=== PATIENT | female | born 1935 | race Caucasian/White ===

== ENCOUNTER 2017-01-14 16:12 | Inpatient (IN) | payer MEDICARE ==
[~2017-01-14] VITALS: Ht 170.2 cm; Wt 63.8 kg
[2017-01-14 16:12] VITALS: BP 181/78; PULSE 73; RESP 15; O2SAT 99
--- NOTE | 2017-01-14 16:15 | ED.REPORT ---
HPI-Hip/Pelvis Prob/Inj Date of Service Jan 14, 2017 ED Provider: Mason Mckeon MD The patient is a 81 year old female who presents to the ED via EMS due to sever right hip pain after a ground level fall [employer]PER[employer]. Her , who is with her in the room, was helping her out of the car in the [employer] parking lot, they both fell over on top of each other. She is not on blood thinners and denies heart and lung problems. Nursing Notes Stated Complaint: HIP PAIN Nursing Notes Reviewed: Yes Allergies: Coded Allergies: Green Thao (Verified Allergy, Unknown, 01/14/17) Penicillins (Verified Allergy, Unknown, 01/14/17) ampicillin (Verified Allergy, Unknown, 01/14/17) egg (Verified Allergy, Unknown, 01/14/17) meperidine (Verified Allergy, Unknown, 01/14/17) milk (Verified Allergy, Unknown, 01/14/17) General Time Seen by Provider: 16:23 Chief Complaint Hip injury right Hx Obtained From: Patient Arrived By: Ambulance Onset Occurred: Just prior to arrival Symptom Duration: Since onset Caused by: Fall on ground Severity: Current: Severe Recent Healthcare: No recent doctor visit, No recent hospitalization Similar Sx Previous: No Past Medical History Past Medical History breast cancer Past Surgical History lumpectomy Smoking History Unknown if Ever Smoker Social History Other Social History: Good social support, , Local resident Ambulatory Status Walker Review of Systems Musculoskeletal: Reports: Joint pain (right hip) Complete sys rev & neg: except as marked. Physical Exam Initial Vital Signs Vital Signs (First) Date Time Temp Pulse Resp B/P Pulse Ox O2 Delivery O2 Flow Rate FiO2 01/14/17 16:12 36.6 73 15 181/78 99 Room Air Initial VS: Reviewed General/Constitutional: Well-developed, Well-nourished Head / Eyes: Atraumatic, Normocephalic, PERRL ENT: Mucous membranes moist, Conjunctiva normal, No scleral icterus Respiratory: Breath sounds normal, Clear to auscultation, No respiratory distress Abdomen / GI: Soft, Non-tender, No guarding, No rebound, No distention Upper Extremities: Vascular intact, Neuro intact, No swelling, No tenderness Skin: Warm, Dry, No cyanosis Psychiatric: Mood/affect normal, Behavior normal, Normal thought content Right Hip: Positive: Open fracture present, Tenderness present... (Moderate), Unable to bear weight Heart Sounds / Murmur: Positive: Systolic murmur present.. (II/) Interpretation & Diagnostics Lab Results Interpretation Result Diagram: 01/14/17 1700 01/14/17 1700 Test 01/14/17 16:45 01/14/17 17:00 01/14/17 17:01 Urine Color Yellow (YELLOW) Urine Appearance Clear (CLEAR,HAZY) Urine pH 7.0 (5.0-8.0) Urine Specific [place] 1.015 (1.003-1.035) Urine Protein Negativemg/dL (NEG,TRACE) Urine Glucose (UA) Negativemg/dL (NEGATIVE) Urine Ketones Negativemg/dL (NEGATIVE) Urine Occult Blood Negative (NEGATIVE) Urine Nitrite Negative (NEGATIVE) Urine Bilirubin Negative (NEGATIVE) Urine Urobilinogen Normalmg/dL (NORMAL) Urine Leukocyte Esterase Negative (NEGATIVE) Urine RBC 0-2/hpf (0-2) Urine WBC 0-5/hpf (0-5) Urine Epithelial Cells Occasional/hpf (NONE-MOD) Urine Crystals None seen (NONE SEEN) Urine Bacteria None/hpf (NONE-FEW) Urine Hyaline Casts None/lpf (NONE) Urine Granular Casts None seen (NONE SEEN) Urine Waxy Casts None seen (NONE SEEN) Urine Red Blood Cell Casts None seen (NONE SEEN) Urine White Blood Cell Casts None seen (NONE SEEN) Urine Mucus None seen (None Seen) Urine Trichomonas None seen (NONE SEEN) Urine Yeast None (NONE SEEN) Urinalysis Comment None Urine Culture Reflexed Not indicated White Blood Count 6.1th/mm3 (3.8-10.1) Red Blood Count 4.10mil/mm3 (3.90-5.20) Hemoglobin 13.1g/dL (12.0-15.6) Hematocrit 38.1% (35.0-46.0) Mean Corpuscular Volume 92.9fL (81-100) Mean Corpuscular Hemoglobin 32.0pg (27.0-35.0) Mean Corpuscular Hemoglobin Concent 34.4% (32.0-37.0) Red Cell Distribution Width 14.0% (12.3-15.4) Platelet Count 232bil/L (150-400) Neutrophils (%) (Auto) 61.1% (40-74) Lymphocytes (%) (Auto) 24.3% (14-46) Monocytes (%) (Auto) 11.8% (4-12) Eosinophils (%) (Auto) 2.0% (0-5) Basophils (%) (Auto) 0.5% (0-3) Sodium Level 131mEq/L (134-144) Potassium Level 4.7mEq/L (3.5-5.2) Chloride Level 93mEq/L (97-108) Carbon Dioxide Level 22mmol/L (18-29) Blood Urea Nitrogen 24mg/dL (8-27) Creatinine 0.61mg/dL (0.57-1.00) Estimat Glomerular Filtration Rate 135mL/min (>59) Glucose Level 108mg/dL (60-99) Calcium Level 9.2mg/dL (8.5-10.1) Total Bilirubin 0.4mg/dL (0.0-1.2) Aspartate Amino Transf (AST/SGOT) 31U/L (0-50) Alanine Aminotransferase (ALT/SGPT) 22U/L (0-32) Alkaline Phosphatase 76U/L (25-165) Total Protein 6.7g/dL (6.4-8.4) Albumin 4.4g/dL (3.4-5.0) Hold Urine Received (Received) ECG Interpretation ECG Interpretation: ectopic atrial rhythm (rate 83) Time: 16:40 Interpreted by: ED physician X-Ray Chest Interpretation Chest Xray Interpretation: IMPRESSION: No acute cardiopulmonary disease process. Dictated by: Juliette Benton MD, PhD on 01/14/2017 at 18:12 Approved by: Juliette Benton MD, PhD on 01/14/2017 at 18:13 View: Portable Interpretation / Wet Read by: Interpret - Radiologist X-Ray Interpretation Xray Interpretation: IMPRESSION: Intertrochanteric right hip fracture. Dictated by: Juliette Benton MD, PhD on 01/14/2017 at 18:11 Approved by: Juliette Benton MD, PhD on 01/14/2017 at 18:12 X-Ray Ordered: Pelvis, Hip right Interpretation / Wet Read by: Interpret - Radiologist Re-Eval/Medical Decision Re-Evaluation/Progress #1: Time of Eval: 18:03 Re-Evaluation/Progress Note: Pt rechecked. Informed of imaging results of broken hip. Need for admission and potential surgery. Discussed plan of treatment with family. Pt understands and agrees with plan. All questions addressed. Re-Evaluation/Progress #2: Time of Eval: 19:00 Patient Status: Mild relief Re-Evaluation/Progress Note: Pt rechecked. Code status discussed with patient and family. Full code. Consultation #1: Referral / Consult Name: Ailyn Park MD Consulted With: Hospitalist Call Returned at: 18:35 Outreach Specialist: Agrees with eval, Agrees with plan, Accepts admit Note: Case discussed. Dr. Park will see patient Consultation #2: Referral / Consult Name: Irasema Wiseman DO Consulted With: Orthopedic Outreach Specialist: Will see patient Counseled Regarding: Diagnosis, Lab results Discharge & Departure Impression: Primary Impression: Hip fracture Encounter type: initial encounter Fracture type: open Open fracture type: open type I or II Laterality: right Qualified Code: S72.001B - Fracture of unspecified part of neck of right femur, initial encounter for open fracture type I or II Disposition: ADMITTED TO HOSPITAL Discharge Condition All VS Reviewed: Yes Condition: Stable Referrals: [facility] Scribe Attestation Portion of this note were transcribed by Gillian Galindo. I, Dr. Mckeon, personally performed the history, physical exam, and medical decision-making: I reviewed and confirmed the accuracy for the information in the transcribed note. Signed by: talib Rebolledo, 01/14/17 1800 copies to: [facility] Mason Mckeon MD Jan 14, 2017 16:15 Gillian Galindo Jan 14, 2017 16:28
[2017-01-14] MEDS ORDERED: Ondansetron 2 mg/mL 2 mL Inj IV PRN (16:25)
[2017-01-14] MEDS: HYDROmorphone 0.5 mg/0.5 mL iSecure Syringe IVPUSH PRN ×4 (16:39→23:07)
[2017-01-14 16:50] VITALS: BP 167/71; PULSE 75; RESP 20; O2SAT 100
[2017-01-14 17:08] LABS: BASOPHILS % (AUTO) 0.5 % (0-3); MONOCYTES % (AUTO) 11.8 % (4-12); Mean Corpuscular Volume 92.9 fL (81-100); NEUTROPHILS % (AUTO) 61.1 % (40-74); Platelet Count 232 bil/L (150-400)
--- NOTE | 2017-01-14 18:14 | DRSVH ---
PROCEDURE: X-RAY PELVIS W/LAT HIP (RT) ([id number]) INDICATIONS: fall R hip pain TECHNIQUE: AP pelvis with lateral view(s) of the right hip(s). COMPARISON: None. FINDINGS: Bones: Comminuted, intertrochanteric right hip fracture is noted. Right hip fracture is in varus an gulation. Soft tissues: The visualized bowel gas pattern is normal. Calcifications project over the midline of the pelvis likely related to uterine fibroids. IMPRESSION: Intertrochanteric right hip fracture. Dictated by: Juliette Benton MD, PhD on 01/14/2017 at 18:11 Approved by: Juliette Benton MD, PhD on 01/14/2017 at 18:12
--- NOTE | 2017-01-14 18:14 | DRSVH ---
PROCEDURE: X-RAY CHEST ONE VIEW, PORTABLE ([id number]) INDICATIONS: fall R hip pain TECHNIQUE: One view of the chest was acquired. COMPARISON: None. FINDINGS: Surgical changes and devices: Multiple surgical clips project over the breasts bilaterally. Cerclag e wires project over the mid thoracic spine. Lungs and pleura: No pleural effusions or pneumothorax. Lungs are clear. Mediastinum: Mediastinal contours appear normal. Heart size is normal. Bones and chest wall: No suspicious bony lesions. Overlying soft tissues appear unremarkable. Conve x right thoracic spine scoliosis. IMPRESSION: No acute cardiopulmonary disease process. Dictated by: Juliette Benton MD, PhD on 01/14/2017 at 18:12 Approved by: Juliette Benton MD, PhD on 01/14/2017 at 18:13
[2017-01-14 18:30] VITALS: BP 166/70; PULSE 78; RESP 15; O2SAT 98
[2017-01-14] MEDS ORDERED: Alum-Mag Hydrox-Simeth 30 mL Suspension PO PRN ×2 (18:55→21:55)
[2017-01-14] MEDS ORDERED: Ondansetron 2 mg/mL 2 mL Inj IVPUSH PRN ×2 (18:55→21:55)
[2017-01-14 19:41] LABS: APPEARANCE,URINE CLEAR (CLEAR,HAZY); COLOR,URINE YELLOW (YELLOW)
[2017-01-14 19:42] LABS: OCCULT BLOOD,URINE NEGATIVE (NEGATIVE); UROBILINOGEN,URINE NORMAL (NORMAL)
[2017-01-14 20:05] VITALS: BP 189/91; PULSE 65; RESP 18; O2SAT 98
--- NOTE | 2017-01-14 22:07 | PCM.HPMED ---
Subjective Date of Service Jan 14, 2017 Primary Provider: Admitting Physician: Ailyn Park MD Primary Care Physician: Christiano Briggs MD Attending Physician: Ailyn Park MD Admit Status: From the Emergency Department, Full Admit Chief Complaint: right hip pain following a fall History of Present Illness: She was helping her today who lost his balance and fell into her and while she was trying to prevent him from falling she fell and landed on the cement on her right side and noted right hip pain and was unable to get up. Denies LOC. No preceeding chest pain, SOB or palpitations. Review of Systems: Negative except as above. No recent acute illnesses. Allergies Coded Allergies: Green Thao (Verified Allergy, Unknown, 01/14/17) Penicillins (Verified Allergy, Unknown, 01/14/17) ampicillin (Verified Allergy, Unknown, 01/14/17) egg (Verified Allergy, Unknown, 01/14/17) meperidine (Verified Allergy, Unknown, 01/14/17) milk (Verified Allergy, Unknown, 01/14/17) Home Medications She takes two meds but doesn't know doses, daughter will bring them in tomorrow: anti-estrogen for history of breast cancer thyroid med PMH hard of hearing hypothyroidism hx bilat breast cancer, no XRT or chemo chronic droop of right side of mouth due to a past dental procedure Denies heart or lung disease although says occl has an irreg heart beat that hasn't been diagnosed, no HTN or DM Surgical History "Pectus surgery" at age 26 bilat cataract surgery bilat breast lumpectomies for breast cancer Family History parents both of old age, not aware of any heart disease in the family Social History Hx Alcohol Use: Yes (a few per year) Hx Substance Use: No Hx Tobacco Use: No Smoking Status: Unknown if Ever Smoker Living Arrangement: with Family (but with progessive dementia, can't live alone without patient so family wonders if they can both be at same NH while she rehabs) Additional Information No written HC POA but would designate giovanni [place] Exam Vital Signs Vital Sign - Last Date Time Temp Pulse Resp B/P Pulse Ox O2 Delivery O2 Flow Rate FiO2 01/14/17 20:05 36.6 65 18 189/91 98 Room Air Exam General: Alert and oriented, no acute distress HEENT: unremarkable except the chronic droop of right side of mouth Neck: no JVD, carotids 2+ Heart: Regular Lungs: Clear Abdomen: Soft, non-tender, normal BT Extremities: No pedal edema Neuro: no apparent deficit Lab and Diagnostics Result Diagram: 01/14/17169901/14/171699 Assessment & Plan # Right hip fracture - by report she's scheduled for surgery at 9 am tomorrow morning - no apparent contraindications to surgery # hx breast cancer and hypothyroidism - still needs home meds ordered, giovanni will bring list tomorrow # BP elevated which may be due to pain and anxiety, observe Ailyn Park MD Jan 14, 2017 22:07
--- NOTE | 2017-01-14 23:46 | NUR ---
ADMIT; 81 yr old female from [facility] at approx. 1944 to room 1022 via [email or web address] whose apparently fell on her in a store parking lot and fx her right hip. See admit screen.
--- NOTE | 2017-01-14 23:50 | NUR ---
MED REC NOT COMPLETED. Pt's daughter will bring in names and doses of 2 meds pt takes at home in the a.m. - Dr. Vivian lozada.
[2017-01-15] VITALS (14 sets, daily range): BP systolic 131–177; BP diastolic 60–85; PULSE 64–76; RESP 10–18; O2SAT 96–100
[2017-01-15] MEDS: 0.9% Sodium Chloride 1,000 ML IV SCH ×2 (00:27→07:51)
[2017-01-15] MEDS: HYDROmorphone 0.5 mg/0.5 mL iSecure Syringe IVPUSH PRN ×4 (02:57→18:31)
--- NOTE | 2017-01-15 03:25 | NUR ---
PAIN; ortho checks wnl. Right leg shorter than left. Dilaudid 0.5mg iv for pain with moderate relief. Alert and oriented. NPO after midnight for surgery in a.m.- family aware and talked with hospitalist.
[2017-01-15] MEDS ORDERED: Dexamethasone 4 mg/mL Inj ONE (08:10)
[2017-01-15] MEDS ORDERED: Ondansetron 2 mg/mL 2 mL Inj ONE (08:10)
[2017-01-15] MEDS ORDERED: EPHEDrine/NS 5 mg/mL 5 mL Syringe ONE (08:10)
[2017-01-15] MEDS ORDERED: Propofol 10,000 mCg/mL 20 mL Inj ONE (08:10)
[2017-01-15] MEDS ORDERED: Ketamine 10 mg/mL 20 mL Inj ONE (08:10)
[2017-01-15] MEDS ORDERED: Lactated Ringer's 1,000 ML IV ONE ×2 (08:55→09:22)
[2017-01-15] MEDS ORDERED: Dexamethasone 4 mg/mL Inj IVPUSH PRN (08:55)
[2017-01-15] MEDS ORDERED: Lactated Ringer's 1,000 ML IV SCH (08:55)
[2017-01-15] MEDS ORDERED: Phenylephrine 10,000 mCg/mL Inj IVPUSH PRN (08:55)
[2017-01-15] MEDS ORDERED: Lactated Ringer's 500 ML IV PRN (08:55)
[2017-01-15] MEDS ORDERED: EPHEDrine Sulfate 50 mg/mL Inj IVPUSH PRN (08:55)
[2017-01-15] MEDS ORDERED: MetoCLOpramide 5 mg/mL 2 mL Inj IVPUSH PRN (08:55)
[2017-01-15] MEDS ORDERED: Ondansetron 2 mg/mL 2 mL Inj IVPUSH PRN ×2 (08:55→10:55)
--- NOTE | 2017-01-15 08:55 | PCM.HPANE ---
Patient Data Surgeon Admitting Provider:Ailyn Park MD Attending Provider:Ailyn Park MD Primary Care Physician:Christiano Briggs MD Other Provider: Reason for Visit Right Hip Fracture Ht/WT & BMI Height (Feet): 5 Height (Inches): 7.00 Weight (Kilograms): 63.800 Body Mass Index 22.08 Allergies Coded Allergies: Green Thao (Verified Allergy, Intermediate, Rash, 01/14/17) Penicillins (Verified Allergy, Intermediate, Rash, 01/14/17) ampicillin (Verified Allergy, Intermediate, Rash, 01/14/17) codeine (Verified Allergy, Intermediate, 01/15/17) egg (Verified Allergy, Intermediate, Rash, 01/14/17) meperidine (Verified Allergy, Intermediate, Rash, 01/15/17) milk (Verified Allergy, Intermediate, Rash, 01/14/17) Past Anesthesia History Anesthesia History: Denies:: Abnormal Airway, Anesthesia Reactions, Difficult Intubation Diabetes History Hx Diabetes?: No MRSA MRSA: No Medications Hypertension Medication: No Home Meds Incl Beta Ebonie: No History History of ENT Problems?: No HEENT History: Denies:: Abnormal Airway Difficult Intubation Hx of Heart Problems?: No Hx of Respiratory Problem?: No Hx Neurologic Problems?: No Hx of GI Problems?: No Hx of Problems?: No Female Hx: Positive for:: Problems with Breasts? (HX OF DOUBLE LUMPECTOMY) Hx Musculoskeletal Problems?: No Hx of Psycho/Social Problems?: No Hx Surgeries?: Yes (APPY A CHILD) Hx Any Other Health Problems?: Yes Other History: Positive for:: Cancer (BREAST CANCER) Hospitalization Thyroid Disease History Blood Transfusions: Positive for:: Accept Blood Products? Denies:: Blood Transfuse Reaction Blood Transfusions Hx Diabetes: No Hx Alcohol Use: Yes (a few per year)Hx Substance Use: No Smoking Status: Unknown if Ever Smoker Have You Smoked inLast 12 mo: No Stop/Bang Treated for Sleep Apnea?: No Do You Have a CPAP Machine?: No S-Snoring: Do You Snore Loudly: No T-Tired: feel tired, fatigued: No O-Obsered: Observed not breath: No P-Blood Pressure: treated: No B- Body Mass Index > 35 kg/m2: No A- Age over 50: Yes N- Neck Large Circumference: No G- Gender Male: No DUANE Total Score: 0 DUANE Risk Assessment: Low Risk, <3 Yes Risk Assessment Category Category 1A: Patient has history of documented sleep apnea, and HAS NOT received any narcotic, sedative or anesthesia administration during this stay. Category 1B: Patient has history of documented sleep apnea, and HAS received any narcotic , sedative or anesthesia administration during this stay Category 2: Patient has SUSPECTED Obstructive Sleep Apnea, and HAS received any narcotic , sedative or anesthesia administration during this stay. Category 3: Patient has SUSPECTED Obstructive Sleep Apnea and HAS NOT received narcotic, sedative or anesthesia administration during this stay. Category 4: Outpatient in Procedural Areas with known sleep apnea or who screen positive for High Risk via the STOP/BANG questionnaire. Exam Exam Vital Signs Vital Signs Date Time Temp Pulse Resp B/P Pulse Ox O2 Delivery O2 Flow Rate FiO2 01/15/17 05:30 36.5 64 18 177/85 97 Room Air General Appearance: Alert, Oriented X3, Cooperative, No Acute Distress HEENT/AIRWAY: MP 2 Lungs: Clear to Auscultation, Normal Air Movement Heart: Exam Unremarkable, Regular Rate/Rhythm, No Murmurs/Rubs/Gallops Meds/Labs/Diagnostics Admission Meds Current Medications Sodium Chloride (Normal Saline) 1,000 ml @ 100 mls/hr Q10H IV Last administered on 01/15/17 00:27; Start 01/14/17 at 21:51 Amlodipine Besylate (Norvasc) 5 mg DAILY PO Last administered on 01/15/17 08: 47; Start 01/15/17 at 08:30 Labs Test 01/14/17 16:45 01/14/17 17:00 01/14/17 17:01 Urine Color Yellow (YELLOW) Urine Appearance Clear (CLEAR,HAZY) Urine pH 7.0 (5.0-8.0) Urine Specific [place] 1.015 (1.003-1.035) Urine Protein Negativemg/dL (NEG,TRACE) Urine Glucose (UA) Negativemg/dL (NEGATIVE) Urine Ketones Negativemg/dL (NEGATIVE) Urine Occult Blood Negative (NEGATIVE) Urine Nitrite Negative (NEGATIVE) Urine Bilirubin Negative (NEGATIVE) Urine Urobilinogen Normalmg/dL (NORMAL) Urine Leukocyte Esterase Negative (NEGATIVE) Urine RBC 0-2/hpf (0-2) Urine WBC 0-5/hpf (0-5) Urine Epithelial Cells Occasional/hpf (NONE-MOD) Urine Crystals None seen (NONE SEEN) Urine Bacteria None/hpf (NONE-FEW) Urine Hyaline Casts None/lpf (NONE) Urine Granular Casts None seen (NONE SEEN) Urine Waxy Casts None seen (NONE SEEN) Urine Red Blood Cell Casts None seen (NONE SEEN) Urine White Blood Cell Casts None seen (NONE SEEN) Urine Mucus None seen (None Seen) Urine Trichomonas None seen (NONE SEEN) Urine Yeast None (NONE SEEN) Urinalysis Comment None Urine Culture Reflexed Not indicated White Blood Count 6.1th/mm3 (3.8-10.1) Red Blood Count 4.10mil/mm3 (3.90-5.20) Hemoglobin 13.1g/dL (12.0-15.6) Hematocrit 38.1% (35.0-46.0) Mean Corpuscular Volume 92.9fL (81-100) Mean Corpuscular Hemoglobin 32.0pg (27.0-35.0) Mean Corpuscular Hemoglobin Concent 34.4% (32.0-37.0) Red Cell Distribution Width 14.0% (12.3-15.4) Platelet Count 232bil/L (150-400) Neutrophils (%) (Auto) 61.1% (40-74) Lymphocytes (%) (Auto) 24.3% (14-46) Monocytes (%) (Auto) 11.8% (4-12) Eosinophils (%) (Auto) 2.0% (0-5) Basophils (%) (Auto) 0.5% (0-3) Sodium Level 131mEq/L (134-144) Potassium Level 4.7mEq/L (3.5-5.2) Chloride Level 93mEq/L (97-108) Carbon Dioxide Level 22mmol/L (18-29) Blood Urea Nitrogen 24mg/dL (8-27) Creatinine 0.61mg/dL (0.57-1.00) Estimat Glomerular Filtration Rate 135mL/min (>59) Glucose Level 108mg/dL (60-99) Calcium Level 9.2mg/dL (8.5-10.1) Total Bilirubin 0.4mg/dL (0.0-1.2) Aspartate Amino Transf (AST/SGOT) 31U/L (0-50) Alanine Aminotransferase (ALT/SGPT) 22U/L (0-32) Alkaline Phosphatase 76U/L (25-165) Total Protein 6.7g/dL (6.4-8.4) Albumin 4.4g/dL (3.4-5.0) Hold Urine Received (Received) Plan Impression Patient chart reviewed, patient interviewed and anesthestic plan with risks, benefits, and alternatives discussed, and informed consent obtained. ASA Physical Status: ASA2 Mod Systemic Disease Anesthetic Plan: SAB Bene/Risks/Altern/Consents: Yes HP Complete Prior to Induction: Yes Abelardo Simms MD Jan 15, 2017 08:55
[2017-01-15] MEDS ORDERED: Ropivacaine-PF 0.5% 30 mL Inj INFILTRATE ONE (10:15)
--- NOTE | 2017-01-15 10:21 | NUR ---
SNF Choice List Given. Lenora Moses MSW
[2017-01-15] MEDS ORDERED: THYR15TA PO (10:45)
[2017-01-15] MEDS ORDERED: 0.9% Sodium Chloride 1,000 ML IV SCH (10:55)
[2017-01-15] MEDS ORDERED: diphenhydrAMINE 25 mg Capsule PO PRN (10:55)
--- NOTE | 2017-01-15 12:00 | NUR ---
returned to room 1022 from PACU alert, oriented, but forgetful, both legs still very numb, VSS, dressing C/D/I, appears comfortable, no distress, ortho sign OK
[2017-01-15] MEDS: THYROID PORK 15 MG PO SCH (12:20)
--- NOTE | 2017-01-15 12:27 | PCM.PNMED ---
Subjective Date of Service Jan 15, 2017 Subjective BP elevated. Started amlodipine. Pain controlled. Awaiting surgery. Exam Vital Signs Vital Sign - Last Date Time Temp Pulse Resp B/P Pulse Ox O2 Delivery O2 Flow Rate FiO2 01/15/17 11:40 72 16 165/67 97 Room Air 01/15/17 11:30 36.2 01/15/17 11:05 4 Intake and Output 01/14/17 01/14/17 01/15/17 Cumulative From/Thru 15:00 23:00 07:00 01/14/17 16:12 - 01/15/17 06:23 Intake Total 719 ml 719 ml Balance 719 ml 719 ml Intake Oral 300 ml 300 ml IV Total 419 ml 419 ml Exam General: Alert and oriented, no acute distress HEENT: unremarkable except the chronic droop of right side of mouth Neck: no JVD, carotids 2+ Heart: Regular Lungs: Clear Abdomen: Soft, non-tender, normal BT Extremities: No pedal edema. Right hip tenderness on passive movement. Neuro: no apparent deficit IVs and Medications Medications Reviewed: Medications were reviewed in detail Lab and Diagnostics Result Diagram: 01/14/17 1700 01/14/17 1700 X-Rays, CTs and MRIs PROCEDURE: X-RAY PELVIS W/LAT HIP (RT) ([id number]) INDICATIONS: fall R hip pain TECHNIQUE: AP pelvis with lateral view(s) of the right hip(s). COMPARISON: None. FINDINGS: Bones: Comminuted, intertrochanteric right hip fracture is noted. Right hip fracture is in varus angulation. Soft tissues: The visualized bowel gas pattern is normal. Calcifications project over the midline of the pelvis likely related to uterine fibroids. IMPRESSION: Intertrochanteric right hip fracture. Dictated by: Juliette Benton MD, PhD on 01/14/2017 at 18:11 Assessment & Plan # Right hip fracture - she is scheduled for surgery this morning - no apparent contraindications to surgery # Hypertension, probably chronic -Started amlodipine -BP continues to be high despite pain control #Hypothyroidism, chronic -Continue home thyroid armor # hx breast cancer and hypothyroidism - still needs home meds ordered, giovanni will bring list tomorrow [employer]: Intermittant Pneumatic CD Kameron Cullen MD Jan 15, 2017 12:27
[2017-01-15] MEDS: Acetaminophen IV 1,000 MG in IV Premix 1 EACH IV PRN ×2 (13:07→23:18)
--- NOTE | 2017-01-15 13:51 | NUR ---
PT eval order received to begin PT MARKUS; however, nsg reports pt does not have any sensation in LEs yet; not safe to attempt standing; unable to return sec to LC; f/u in a.m. 01/16
[2017-01-15] MEDS ORDERED: ANAS1TAB7 PO (14:04)
--- NOTE | 2017-01-15 15:17 | NUR ---
Social Work- Initial Assessment Data: See Initial Assessment. Pt is a 81 year old female admitted 01/14/17 for right hip fracture per H&P. Pt's insurance is [facility] and [employer]. Pt's PCP is Christiano Briggs MD. EMR reviewed. DEDE met with pt and daughter Kathy Gordon [phone] at bedside regarding discharge plan, SW role explained. Pt resides in [place] with her where she remains independent with her ADLs and cares for her , who has dementia. Pt uses no DME and drives. Pt has no HH or SNF history prior to admission. Pt has LTC benefits but no VA benefits. SW spoke with pt and daughter regarding DPOA, provided paperwork. Per Surgery, pt's anticipated to need SNF at discharge. PT evaluation pending. Pt's daughter informed SW that pt's cannot be at home while pt is at SNF receiving rehab. Daughter requests that pt be admitted to SNF as well while pt is there. SW offered private pay caregivers to family during pt's SNF admission, family declined. SW explained private pay admission for pt's , private pay caregivers, and the process of SNF placement from home. SW explained that SW cannot facilitate 's acceptance or placement to SNF beyond general guidance, but SW will facilitate pt's placement to SNF pending clinical course. SNF choice list provided. Family requests referrals be made to [facility] in [place] [phone], [facility] in [place] [phone], and [facility] in [place] [phone]. SW encouraged daughter to tour and speak with facilities directly regarding husbands admission. SW faxed pt's H&P and facesheet to each facility. SW provided phone number on whiteboard. Pt anticipated to discharge to SNF pending clinical course and PT recommendations. Paperwork in chart. PASRR in folder. SW will continue to follow. Contact information included below: [place], [place]-- admissions Nikki. Ph is [phone], fax is [phone]. [place], [place]-- admissions Chiara. Ph is [phone], fax is [phone] [facility]-- admissions Miky. [phone], fax is [phone] Assessment: Pt who may benefit from SNF. Plan: PT evaluation pending. Pt anticipated to discharge to SNF. Referrals made to [facility], [facility], and [facility]. SW will continue to follow. ZIYAD Sheppard Addendum: 01/15/17 at 1543 by ANITA BATRES SS Amended: Links added.
--- NOTE | 2017-01-15 15:25 | NUR ---
Evaluation completed. Please go to "Notes" then click on "Assessments and Notes" (bottom left corner of screen). Then select appropriate discipline tab on top of screen.
--- NOTE | 2017-01-15 16:11 | CONS ---
[address] [address] CONSULTATION REPORT PATIENT: SUSHMA BRYAN : 1935 MR#: [id number] ADMIT: 01/14/2017 JOB ID: [id number] DATE OF SERVICE: 01/15/2017 CHIEF COMPLAINT: Right hip pain. HISTORY OF PRESENT ILLNESS: The patient is an 81-year-old female, who was walking with her , assisting him across the street at [facility], when he started to fall, and she subsequently fell onto her right hip, sustaining a right intertrochanteric hip fracture. She was unable to ambulate after the fall and had onset of severe acute pain in the right upper thigh. She normally walks without aids and cares for her , who is quite unsteady on his feet. PAST MEDICAL HISTORY: Significant for hypothyroid and history of breast cancer, which was surgically resected many years ago. PAST SURGICAL HISTORY: Includes the breast cancer resection. SOCIAL HISTORY: Patient lives at home with her . Does not smoke. 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 ALLERGIES: Include: 1. PENICILLIN, causing a rash. 2. AMPICILLIN. 3. DEMEROL. 4. CODEINE, causing nausea. PHYSICAL EXAMINATION: Blood pressure 131/65, pulse rate 67, respirations 15, temperature 36.4. She is alert and cooperative, in no acute distress. Right hip has pain with range of motion in the groin. She is able to move her toes. Her sensation to foot is intact. Her foot is shortened and externally rotated. The skin overlying the hip is intact. She has some palpable osteophytes and obvious degenerative arthritis in her knees. X-rays demonstrate a right intertrochanteric fracture with reverse obliquity and comminution. ASSESSMENT: Right unstable intertrochanteric fracture with reverse obliquity. PLAN: We discussed treatment options for her and this fracture, and I recommended a right hip cephalomedullary nail with spinal anesthesia. We discussed the risks, benefits, and possible complications of this. All questions were answered and she and her daughter wished to proceed. Will plan for Lovenox for DVT prophylaxis postoperatively as she has a daughter who has had DVTs and is anticoagulated. I spent 25 minutes of [id number] time with the patient, greater than 50% of which was in counseling and coordination of care regarding her disease management, fracture management.
[2017-01-15] MEDS: Sodium Chloride LOK Flush 10 mL Syringe IV SCH (18:31)
--- NOTE | 2017-01-15 18:39 | OP ---
[address] [address] OPERATIVE REPORT PATIENT: SUSHMA BRYAN : 1935 MR#: [id number] ADMIT: 01/14/2017 JOB ID: [id number] DATE OF SURGERY: 01/15/2017 PREOPERATIVE DIAGNOSIS(ES): Right reverse obliquity intertrochanteric fracture. POSTOPERATIVE DIAGNOSIS(ES): Right reverse obliquity intertrochanteric fracture. PROCEDURE: Right hip short Affixus nail. SURGEON: Ochoa Wiseman DO. ANESTHESIA: Spinal. INDICATIONS: The patient is an 81-year-old female, who fell in the parking lot of [employer] sustaining a right intertrochanteric hip fracture. We discussed treatment options and she wished to proceed with a right hip cephalomedullary nailing. We discussed the risks, benefits, and possible complications of surgery. All questions were answered and she wished to proceed. PROCEDURE IN DETAIL: The patient was brought to the operating room. She was given a spinal anesthetic and preoperative antibiotic. A surgical time-out was performed. She was placed onto the fracture table and the right hip was reduced with a combination of traction, abduction, internal rotation. The right hip was then sterilely prepped and draped,and an incision was made centered about three fingerbreadths above the level of the trochanter. Dissection was carefully carried through the subcutaneous tissue and down onto the iliotibial band, which was incised in line with the skin incision. The guidewire was placed into the tip of the trochanter and advanced into the center of the femoral canal. This was confirmed with biplane fluoroscopy and this was over-reamed with the one-step reamer. Next, I placed an 11 mm, 125-degree, short Affixus nail. This was inserted without difficulty and then we placed the lag screw, making incision over the lateral thigh. The lag screw sleeve was advanced onto the lateral cortex of the femur and a guidepin was advanced into the center-center position in the femoral head. This was measured, over-reamed, and then a 100 mm lag screw was inserted. Had excellent fixation. A set screw was placed and backed off a quarter turn. A distal locking screw was placed and the wounds were then irrigated and closed with 0 Vicryl to close the deep fascia, 2-0 to close the subcu. The skin was closed with satnam. Naropin was added as an adjunct to local anesthetic. Fluoroscopy confirmed appropriate position of the implants and sterile dressings were applied. Patient tolerated the procedure well. BLOOD LOSS: 50 cc. POSTOPERATIVE PROTOCOL: Have the patient weightbear to tolerance with a walker. We used Lovenox for DVT prophylaxis for 21 days postoperatively and planned for Anchor 5/325 for pain.
[2017-01-15] MEDS: CeFAZolin Inj 2 GM in IV Premix 1 EACH IV SCH (19:30)
[2017-01-16 00:16] VITALS: BP 138/64; PULSE 71; RESP 18; O2SAT 96
[2017-01-16] MEDS: Sodium Chloride LOK Flush 10 mL Syringe IV SCH ×3 (00:30→13:27)
--- NOTE | 2017-01-16 01:55 | NUR ---
PAIN: During initial assessment pt. c/o post op hip pain. Given IV Tylenol, helpful. Offered PO Cast[place] but pt. declined wants to wait until later. Repositioned in bed. Very BARROW, A & O, vss. On going care.
[2017-01-16] MEDS: CeFAZolin Inj 2 GM in IV Premix 1 EACH IV SCH (03:21)
[2017-01-16] MEDS: HYDROcodone-APAP 5-325 mg Tablet PO PRN ×4 (03:55→21:11)
[2017-01-16 04:14] VITALS: BP 155/76; PULSE 67; RESP 16; O2SAT 96
[2017-01-16 06:16] LABS: BASOPHILS % (AUTO) 0.1 % (0-3); EOSINOPHILS % (AUTO) 0.7 % (0-5); MONOCYTES % (AUTO) 14.5 % (4-12); Mean Corpuscular Hemoglobin 31.3 pg (27.0-35.0); Mean Corpuscular Volume 91.5 fL (81-100); NEUTROPHILS % (AUTO) 72.7 % (40-74); Platelet Count 176 bil/L (150-400)
[2017-01-16] MEDS: 0.9% Sodium Chloride 1,000 ML IV SCH ×2 (08:15→21:12)
[2017-01-16] MEDS: THYROID PORK 15 MG PO SCH (08:30)
--- NOTE | 2017-01-16 10:09 | PCM.ANEP1 ---
Post Anesthesia Phase 1 PACU Phase 1 Assessment Vital Signs Vital Signs Date Time Temp Pulse Resp B/P Pulse Ox O2 Delivery O2 Flow Rate FiO2 01/16/17 04:14 36.7 67 16 155/76 96 Room Air Anesthetic Administered: SAB Level of Alertness: Awake, talking CINTRON's with Equal Strength: Yes Pain: Yes Pain Scale Score: 6 Nausea or Vomiting: No Lungs: Clear to Auscultation, Normal Air Movement Dermatome Level: L3,4 (Patella) Abelardo Simms MD Jan 16, 2017 10:09
--- NOTE | 2017-01-16 10:10 | PCM.ANEP2 ---
Post Anesthesia Evaluation ASA/CMS Post Anesthesia VS in Patient's Normal Range?: Yes Resp Stable; Airway Patent?: Yes CV Function & Hydration Stable: Yes Mental Status Recovered?: Yes Pain control Satisfactory?: Yes N/V Control Satisfactory?: Yes Abelardo Simms MD Jan 16, 2017 10:10
--- NOTE | 2017-01-16 10:31 | PCM.PNORTH ---
Subjective Date of Service: Jan 16, 2017 Visit Information: Reason for Visit Right Hip Fracture Surgery/Surgery Date R HIP NAIL 01/15/17 Post-Op Day # 1 Date of Admission: Jan 14, 2017 at 18:43 Hospital Day # Subjective Patient complained of incisional pain. She is currently working with physical therapy. Postop General: No Shortness of Breath, No Chest Pain, Good Appetite Pain Management: PO, IV Push Objective Exam Objective Patient is seen sitting up in bed Vital Signs and I/O Vital Sign - Last Date Time Temp Pulse Resp B/P Pulse Ox O2 Delivery O2 Flow Rate FiO2 01/16/17 04:14 36.7 67 16 155/76 96 Room Air 01/15/17 11:05 4 Intake and Output 01/15/17 01/15/17 01/16/17 Cumulative From/Thru 15:00 23:00 07:00 01/14/17 16:12 - 01/16/17 06:39 Intake Total 900 ml 600 ml 707 ml 2926 ml Output Total 550 ml 1150 ml 725 ml 2425 ml Balance 350 ml -550 ml -18 ml 501 ml Intake Oral 600 ml 400 ml 1300 ml IV Total 900 ml 307 ml 1626 ml Output Urine Total 500 ml 1150 ml 725 ml 2375 ml Estimated Blood Loss 50 ml 50 ml # Bowel Movements 0 0 Lab & Micro Results Laboratory Tests Test 01/16/17 05:50 White Blood Count 7.1th/mm3 (3.8-10.1) Red Blood Count 3.64mil/mm3 (3.90-5.20) Hemoglobin 11.4g/dL (12.0-15.6) Hematocrit 33.3% (35.0-46.0) Mean Corpuscular Volume 91.5fL (81-100) Mean Corpuscular Hemoglobin 31.3pg (27.0-35.0) Mean Corpuscular Hemoglobin Concent 34.2% (32.0-37.0) Red Cell Distribution Width 13.2% (12.3-15.4) Platelet Count 176bil/L (150-400) Neutrophils (%) (Auto) 72.7% (40-74) Lymphocytes (%) (Auto) 11.7% (14-46) Monocytes (%) (Auto) 14.5% (4-12) Eosinophils (%) (Auto) 0.7% (0-5) Basophils (%) (Auto) 0.1% (0-3) Sodium Level 125mEq/L (134-144) Potassium Level 4.3mEq/L (3.5-5.2) Chloride Level 90mEq/L (97-108) Carbon Dioxide Level 23mmol/L (18-29) Blood Urea Nitrogen 16mg/dL (8-27) Creatinine 0.50mg/dL (0.57-1.00) Estimat Glomerular Filtration Rate 170mL/min (>59) Glucose Level 114mg/dL (60-99) Calcium Level 8.8mg/dL (8.5-10.1) Result Diagram: 01/16/17 0550 01/16/1750 General Appearance: Alert, Oriented X3, Cooperative, No Acute Distress Extremities: Distal Pulses Palpable, No Compartment Syndrom Noted, Thigh & Calf Soft/Nontender Postop Sensory Motor: Distal Motor Intact, NVI Distally SURGICAL WOUND : Wound Location/Description Lateral right hip: Dressing is clean, dry and intact. No erythema or drainage seen. Activity: Activity per PT, Ambulate with PT Catheters: None Assessment & Plan Impression Status post right hip IM nail Problems: Plan Weightbearing: Weightbearing as tolerated with walker DVT prophylaxis: Lovenox 40 mg subcutaneous 3 weeks followed by aspirin 325 mg twice a day 3 weeks Physical therapy for transfers, progressive ambulation, therapeutic exercise Wound care: Reinforce dressing if needed. PA will change dressing tomorrow. Discharge plan: Discharge to snf facility 1-2 days. Follow-up plan: In 2 weeks at [facility] with SARIKA for wound check and at [address] Wiseman with x-rays Pain Management: Dilaudid IV, Tylenol IV, [place] VTE Prophylaxis: Sub-Q Enoxaparin, SCDs Resuscitation Status: CPR: Attempt Resuscitation [place]abel Carrillo PA-C Jan 16, 2017 10:31
--- NOTE | 2017-01-16 12:07 | NUR ---
Evaluation completed. Please go to "Notes" then click on "Assessments and Notes" (bottom left corner of screen). Then select appropriate discipline tab on top of screen.
[2017-01-16 12:14] VITALS: BP 116/71; PULSE 71; RESP 16; O2SAT 95
--- NOTE | 2017-01-16 14:17 | PCM.PNMED ---
Subjective Date of Service Jan 16, 2017 Subjective s/p Right hip nail.Pain controlled. Blood pressure controlled. Hemoglobin 11.4 , preop hemoglobin 13.1, Exam Vital Signs Vital Sign - Last Date Time Temp Pulse Resp B/P Pulse Ox O2 Delivery O2 Flow Rate FiO2 01/16/17 13:52 Room Air 01/16/17 12:14 36.7 71 16 116/71 95 01/15/17 11:05 4 Intake and Output 01/15/17 01/15/17 01/16/17 Cumulative From/Thru 15:00 23:00 07:00 01/14/17 16:12 - 01/16/17 06:39 Intake Total 900 ml 600 ml 707 ml 2926 ml Output Total 550 ml 1150 ml 725 ml 2425 ml Balance 350 ml -550 ml -18 ml 501 ml Intake Oral 600 ml 400 ml 1300 ml IV Total 900 ml 307 ml 1626 ml Output Urine Total 500 ml 1150 ml 725 ml 2375 ml Estimated Blood Loss 50 ml 50 ml # Bowel Movements 0 0 Exam General: Alert and oriented, no acute distress HEENT: unremarkable except the chronic droop of right side of mouth Neck: no JVD, carotids 2+ Heart: Regular Lungs: Clear Abdomen: Soft, non-tender, normal BT Extremities: No pedal edema. Right hip swelling and tenderness. Cleanly dressed surgical site on right hip. Neuro: no apparent deficit IVs and Medications Medications Reviewed: Medications were reviewed in detail Lab and Diagnostics Result Diagram: 01/16/17 0550 01/16/17 0550 X-Rays, CTs and MRIs PROCEDURE: X-RAY PELVIS W/LAT HIP (RT) ([id number]) INDICATIONS: fall R hip pain TECHNIQUE: AP pelvis with lateral view(s) of the right hip(s). COMPARISON: None. FINDINGS: Bones: Comminuted, intertrochanteric right hip fracture is noted. Right hip fracture is in varus angulation. Soft tissues: The visualized bowel gas pattern is normal. Calcifications project over the midline of the pelvis likely related to uterine fibroids. IMPRESSION: Intertrochanteric right hip fracture. Dictated by: Juliette Benton MD, PhD on 01/14/2017 at 18:11 Assessment & Plan # Right hip fracture due to mechanical fall,acute -s/p Right hip short Affixus nail on 01/15/17 -DVT prophylaxis Lovenox 40 mg daily -Pain control: [place] and dilaudid IV # Hyponatremia, acute on chronic -Na 125 today,was 131 yesterday -Probably due to dehydration -NS at 75ml/h -Continue to monitor # Hypertension, probably chronic, new diagnosis -Started amlodipine -BP continues to be high despite pain control #Hypothyroidism, chronic -Continue home armor thyroid # hx breast cancer -continue home anastrazole 1mg daily Disposition: Discharge to snf facility in 1-2 days. VTE Prophylaxis: Sub-Q Enoxaparin, SCDs VTE Mechanical Devices: Intermittant Pneumatic CD Resuscitation Status: CPR: Attempt Resuscitation Kameron Cullen MD Jan 16, 2017 14:17
--- NOTE | 2017-01-16 15:37 | NUR ---
[facility] can accept patient when ready with to follow
--- NOTE | 2017-01-16 15:42 | NUR ---
Social Work: Continued Discharge Planning DEDE attempted to call [facility] in [place] [phone], [facility] in [place] [phone] to follow-up on SNF referral, but there was no answer. SW left a message with her name and number requesting a call back. DEDE spoke with Chiara at [facility] in [place] [phone] and she requested that the referral be refaxed to [phone]. UR specialist will fax update. DEDE will continue to follow. Janeth Padron LMSW, DACIA Addendum: 01/16/17 at 1556 by JANETH PADRON SW received a call from Radha at [facility] stating that they can accept the patient when medically ready and will follow.
--- NOTE | 2017-01-16 16:23 | NUR ---
faxed clinicals to [facility] per CMM PROGRAMMER. -updated CMM PROGRAMMER
[2017-01-16 20:01] VITALS: BP 118/66; PULSE 82; RESP 20; O2SAT 97
[2017-01-17] MEDS: 0.9% Sodium Chloride 1,000 ML IV SCH ×2 (01:37→10:55)
[2017-01-17] MEDS: Sodium Chloride LOK Flush 10 mL Syringe IV SCH ×3 (01:40→10:58)
[2017-01-17] MEDS: HYDROcodone-APAP 5-325 mg Tablet PO PRN ×6 (03:03→22:49)
--- NOTE | 2017-01-17 03:59 | NUR ---
Pain IV fluids Patient states pain at a 7/10 on pain scale. Patient has changed mind on two different occasions in regards to taking 1-2 Vicodin for pain control. Patient states when ambulating to [facility], pain increases significantly. Orders by Dr. Cullen indicated starting NS at 75 ml/hr for hyponatremia. Patient was SL on initial assessment. IV fluids started . VSS. Call light within reach. Care continues.
[2017-01-17 05:09] VITALS: BP 130/64; PULSE 57; RESP 18; O2SAT 97
[2017-01-17 06:37] LABS: BASOPHILS % (AUTO) 0.3 % (0-3); EOSINOPHILS % (AUTO) 1.2 % (0-5); Mean Corpuscular Hemoglobin 31.1 pg (27.0-35.0); Mean Corpuscular Volume 93.4 fL (81-100); NEUTROPHILS % (AUTO) 74.4 % (40-74); Platelet Count 166 bil/L (150-400)
--- NOTE | 2017-01-17 08:31 | NUR ---
[facility] can accept patient when ready. Addendum: 01/17/17 at 1018 by MARCO ANTONIO RUIZ CM Faxed clinicals to [facility] Arevalo per WELT ROUGHER email overnight.
--- NOTE | 2017-01-17 08:42 | NUR ---
DEDE received call from Nikki at [facility] in [place] requesting updated clinicals be faxed. DEDE faxed clinicals to [phone] ZIYAD Sheppard
[2017-01-17] MEDS: THYROID PORK 15 MG PO SCH (08:48)
--- NOTE | 2017-01-17 10:09 | NUR ---
Dizzy Pt c/o dizziness and lightheaded. States that this happens when she is low on NA. BP 89/52. HR 86. SPO2 97% on Ra. Will continue to monitor. Plan to adjust pain medications slightly as well. Care continues
[2017-01-17 10:35] VITALS: BP 89/52; PULSE 86; RESP 16; O2SAT 97
--- NOTE | 2017-01-17 11:22 | PCM.PNORTH ---
Subjective Date of Service: Jan 17, 2017 Visit Information: Reason for Visit Right Hip Fracture Surgery/Surgery Date R HIP NAIL 01/15/17 Post-Op Day # 2 Date of Admission: Jan 14, 2017 at 18:43 Hospital Day # Subjective Patient states she just recently moved to the chair and that it was uncomfortable and she had to take a pain pill. She states she is more comfortable now that she is sitting and not moving. She states the pain is localized to her hip. Postop General: No Shortness of Breath, No Chest Pain, Good Appetite Pain Management: PO, IV Push Objective Exam Objective Patient sitting up in chair. Dressing changed with patient standing. Vital Signs and I/O Vital Sign - Last Date Time Temp Pulse Resp B/P Pulse Ox O2 Delivery O2 Flow Rate FiO2 01/17/17 05:09 36.6 57 18 130/64 97 Room Air 01/15/17 11:05 4 Intake and Output 01/16/17 01/16/17 01/17/17 Cumulative From/Thru 15:00 23:00 07:00 01/14/17 16:12 - 01/17/17 06:24 Intake Total 1400 ml 865 ml 5191 ml Output Total 500 ml 75 ml 3000 ml Balance 900 ml 790 ml 2191 ml Intake Oral 1400 ml 550 ml 3250 ml IV Total 315 ml 1941 ml Output Urine Total 500 ml 75 ml 2950 ml Estimated Blood Loss 50 ml # Bowel Movements 0 Lab & Micro Results Laboratory Tests Test 01/17/17 06:00 White Blood Count 6.8th/mm3 (3.8-10.1) Red Blood Count 3.18mil/mm3 (3.90-5.20) Hemoglobin 9.9g/dL (12.0-15.6) Hematocrit 29.7% (35.0-46.0) Mean Corpuscular Volume 93.4fL (81-100) Mean Corpuscular Hemoglobin 31.1pg (27.0-35.0) Mean Corpuscular Hemoglobin Concent 33.3% (32.0-37.0) Red Cell Distribution Width 13.7% (12.3-15.4) Platelet Count 166bil/L (150-400) Neutrophils (%) (Auto) 74.4% (40-74) Lymphocytes (%) (Auto) 10.5% (14-46) Monocytes (%) (Auto) 13.0% (4-12) Eosinophils (%) (Auto) 1.2% (0-5) Basophils (%) (Auto) 0.3% (0-3) Sodium Level 129mEq/L (134-144) Potassium Level 4.5mEq/L (3.5-5.2) Chloride Level 94mEq/L (97-108) Carbon Dioxide Level 23mmol/L (18-29) Blood Urea Nitrogen 20mg/dL (8-27) Creatinine 0.55mg/dL (0.57-1.00) Estimat Glomerular Filtration Rate 152mL/min (>59) Glucose Level 106mg/dL (60-99) Calcium Level 8.3mg/dL (8.5-10.1) Result Diagram: 01/17/17 0600 01/17/17 0600 General Appearance: Alert, Oriented X3, Cooperative, No Acute Distress Extremities: Distal Pulses Palpable, No Compartment Syndrom Noted, Thigh & Calf Soft/Nontender Postop Sensory Motor: Distal Motor Intact, Movement in Toes, Distal Sensation Intact, NVI Distally SURGICAL WOUND : Incision General Appearance: Yakov Dressing & Drainage Status: Changed Activity: Activity per PT, Ambulate with PT Catheters: None Assessment & Plan Impression POD#2 right hip IM nail Problems: Plan Weightbearing: Weightbearing as tolerated with walker DVT prophylaxis: Lovenox 40 mg subcutaneous 3 weeks followed by aspirin 325 mg twice a day 3 weeks Physical therapy for transfers, progressive ambulation, therapeutic exercise Wound care: Dressing changed by PA today. Reinforce as needed. Discharge plan: [facility] to jail facility 1-2 days. Follow-up plan: In 2 weeks at [facility] with SARIKA for wound check and at [address] Wiseman with x-rays VTE Prophylaxis: Sub-Q Enoxaparin, SCDs Resuscitation Status: CPR: Attempt Resuscitation Nicky Urena PA-C Jan 17, 2017 10:07
[2017-01-17 14:18] VITALS: BP 120/55; PULSE 81; RESP 16; O2SAT 96
--- NOTE | 2017-01-17 14:21 | PCM.PNMED ---
Subjective Date of Service Jan 17, 2017 Subjective No new complaints. Pain controlled. Hemoglobin 9.9, was 11.4 yesterday. Sodium improving. Exam Vital Signs Vital Sign - Last Date Time Temp Pulse Resp B/P Pulse Ox O2 Delivery O2 Flow Rate FiO2 01/17/17 10:35 36.7 86 16 89/52 97 Room Air 01/15/17 11:05 4 Intake and Output 01/16/17 01/16/17 01/17/17 Cumulative From/Thru 15:00 23:00 07:00 01/14/17 16:12 - 01/17/17 06:24 Intake Total 1400 ml 865 ml 5191 ml Output Total 500 ml 75 ml 3000 ml Balance 900 ml 790 ml 2191 ml Intake Oral 1400 ml 550 ml 3250 ml IV Total 315 ml 1941 ml Output Urine Total 500 ml 75 ml 2950 ml Estimated Blood Loss 50 ml # Bowel Movements 0 Exam General: Alert and oriented, no acute distress HEENT: unremarkable except the chronic droop of right side of mouth Neck: no JVD, carotids 2+ Heart: Regular Lungs: Clear Abdomen: Soft, non-tender, normal BT Extremities: No pedal edema. Right hip swelling and tenderness. Cleanly dressed surgical site on right hip. Neuro: no apparent deficit IVs and Medications Medications Reviewed: Medications were reviewed in detail Lab and Diagnostics Result Diagram: 01/17/17 0600 01/17/17 0600 X-Rays, CTs and MRIs PROCEDURE: X-RAY PELVIS W/LAT HIP (RT) ([id number]) INDICATIONS: fall R hip pain TECHNIQUE: AP pelvis with lateral view(s) of the right hip(s). COMPARISON: None. FINDINGS: Bones: Comminuted, intertrochanteric right hip fracture is noted. Right hip fracture is in varus angulation. Soft tissues: The visualized bowel gas pattern is normal. Calcifications project over the midline of the pelvis likely related to uterine fibroids. IMPRESSION: Intertrochanteric right hip fracture. Dictated by: Juliette Benton MD, PhD on 01/14/2017 at 18:11 Assessment & Plan # Right hip fracture due to mechanical fall,acute -s/p Right hip short Affixus nail on 01/15/17 -DVT prophylaxis Lovenox 40 mg daily -Pain control: [place] and dilaudid IV # Hyponatremia, acute on chronic -Na 125 01/16,improved to 129 -Probably due to dehydration -Treated with NS at 75ml/h. Discontinue IV fluids. Encourage by mouth rehydration -Continue to monitor. #Acute blood loss anemia -Continue to monitor # Transient Hypertension, probably chronic, new diagnosis -Initially Started amlodipine on current admission due to high SBP persisting in 180s despite pain control. -Discontinue amlodipine #Hypothyroidism, chronic -Continue home armor thyroid # hx breast cancer -continue home anastrazole 1mg daily Disposition: Discharge to jail facility in 1-2 days. VTE Prophylaxis: Sub-Q Enoxaparin, SCDs VTE Mechanical Devices: Intermittant Pneumatic CD Resuscitation Status: CPR: Attempt Resuscitation Kameron Cullen MD Jan 17, 2017 14:21
[2017-01-17] MEDS: Polyethylene Glycol (PEG) 17 Gm Powder PO PRN ×2 (15:00→22:48)
[2017-01-17] MEDS: hydrOXYzine Pamoate 25 mg Capsule PO PRN ×3 (15:00→22:48)
--- NOTE | 2017-01-17 16:04 | NUR ---
Social Work- Readiness for Discharge Data: EMR reviewed. Pt is on day 3 of hospitalization for right hip fracture per H&P. Pt is not medically stable for discharge, anticipate 1-2 more days. PT recommends SNF for further strengthening and safe functional mobility. DEDE spoke with Nikki, admissions at [facility] in [place] [phone], who is agreeable to accepting pt at discharge with Roseline Carlisle MD to follow. [facility] will not provide transportation from [facility] to [facility]. DDEE will follow up with family regarding private pay cabulance. SW updated pt and pt's daughter Kathy of acceptance. Pt to discharge to [facility] with MD Carlisle to follow. SW will continue to follow. Assessment: Pt who would benefit from SNF. Plan: SW to follow up with family regarding private pay cabulance to SNF. Pt to discharge to [facility] in [place] with MD Carlisle to follow. DEDE will continue to follow. ZIYAD Sheppard
[2017-01-17 20:00] VITALS: BP 124/71; PULSE 80; RESP 16; O2SAT 99
[2017-01-18] MEDS: Sodium Chloride LOK Flush 10 mL Syringe IV SCH ×3 (00:30→16:30)
--- NOTE | 2017-01-18 02:14 | NUR ---
CONSTIPATION/PAIN: Pt. reports no BM during hospital stay, feeling constipated. Stated she attempted to have a BM but was unable, requested an enema. She took some prune juice in the evening, was given Miralx tonight. Paged night hospitalist and requested a suppository. Placed [place] suppository, later on Pt. did have a medium hard BM per [facility]. Encouraged pt. to drink fluids to help with constipation. Gave a second cup of prune juice. For pain was given 25 mg of Vistaril and 1 Hydrocodone, helpful. A & O, vss. On going care.
[2017-01-18 03:35] VITALS: BP 151/69; PULSE 86; RESP 18; O2SAT 96
--- NOTE | 2017-01-18 03:47 | NUR ---
CHEST PAIN: Pt. c/o chest pain, when asked to show where it hurts she pointed on the left side of her breast described as "cramping that comes and goes all the time". rated at 4/10. VS done and state EKG done per chest pain protocol. EKG=sinus rhythm. Pt. up to the [facility] after EKG done. Denies SOB, tolerating activity OOB to [facility] without any problems. Will notify hospitalist. On going care.
[2017-01-18] MEDS: hydrOXYzine Pamoate 25 mg Capsule PO PRN ×5 (03:57→23:06)
[2017-01-18] MEDS: HYDROcodone-APAP 5-325 mg Tablet PO PRN ×3 (03:57→14:22)
[2017-01-18 06:18] VITALS: BP 118/65; PULSE 86; RESP 16; O2SAT 94
[2017-01-18 06:46] LABS: BASOPHILS % (AUTO) 0.2 % (0-3); EOSINOPHILS % (AUTO) 1.7 % (0-5); Mean Corpuscular Hemoglobin 30.8 pg (27.0-35.0); Mean Corpuscular Volume 94.1 fL (81-100); Platelet Count 181 bil/L (150-400)
[2017-01-18 07:08] LABS: Magnesium 2.1 mg/dL (1.6-2.6)
[2017-01-18] MEDS: 0.9% Sodium Chloride 1,000 ML IV SCH ×3 (08:50→23:00)
--- NOTE | 2017-01-18 09:21 | PCM.PNORTH ---
Subjective Date of Service: Jan 18, 2017 Visit Information: Reason for Visit Right Hip Fracture Surgery/Surgery Date R HIP NAIL 01/15/17 Post-Op Day # 3 Date of Admission: Jan 14, 2017 at 18:43 Hospital Day # Subjective Patient complained of feeling weak and dizzy yesterday. Her blood pressure was running low at times. Patient had minimal activity with physical therapy and is only walked 10 feet. Patient has been accepted at [facility] in [place]. Postop General: No Shortness of Breath, No Chest Pain, Good Appetite Pain Management: PO, IV Push Objective Exam Objective Patient is seen lying in bed Vital Signs and I/O Vital Sign - Last Date Time Temp Pulse Resp B/P Pulse Ox O2 Delivery O2 Flow Rate FiO2 01/18/17 06:18 37.2 86 16 118/65 94 Room Air 01/15/17 11:05 4 Intake and Output 01/17/17 01/17/17 01/18/17 Cumulative From/Thru 15:00 23:00 07:00 01/14/17 16:12 - 01/18/17 06:20 Intake Total 600 ml 836 ml 6627 ml Output Total 300 ml 350 ml 3650 ml Balance 300 ml 486 ml 2977 ml Intake Oral 600 ml 836 ml 4686 ml IV Total 0 ml 1941 ml Output Urine Total 300 ml 350 ml 3600 ml Estimated Blood Loss 50 ml # Voids 1 2 3 # Bowel Movements 3 3 Lab & Micro Results Laboratory Tests Test 01/18/17 06:30 White Blood Count 6.5th/mm3 (3.8-10.1) Red Blood Count 3.05mil/mm3 (3.90-5.20) Hemoglobin 9.4g/dL (12.0-15.6) Hematocrit 28.7% (35.0-46.0) Mean Corpuscular Volume 94.1fL (81-100) Mean Corpuscular Hemoglobin 30.8pg (27.0-35.0) Mean Corpuscular Hemoglobin Concent 32.8% (32.0-37.0) Red Cell Distribution Width 13.9% (12.3-15.4) Platelet Count 181bil/L (150-400) Neutrophils (%) (Auto) 71.0% (40-74) Lymphocytes (%) (Auto) 11.6% (14-46) Monocytes (%) (Auto) 15.0% (4-12) Eosinophils (%) (Auto) 1.7% (0-5) Basophils (%) (Auto) 0.2% (0-3) Sodium Level 129mEq/L (134-144) Potassium Level 5.0mEq/L (3.5-5.2) Chloride Level 95mEq/L (97-108) Carbon Dioxide Level 23mmol/L (18-29) Blood Urea Nitrogen 25mg/dL (8-27) Creatinine 0.62mg/dL (0.57-1.00) Estimat Glomerular Filtration Rate 133mL/min (>59) Glucose Level 119mg/dL (60-99) Calcium Level 8.4mg/dL (8.5-10.1) Magnesium Level 2.1mg/dL (1.6-2.6) Total Bilirubin 0.6mg/dL (0.0-1.2) Aspartate Amino Transf (AST/SGOT) 114U/L (0-50) Alanine Aminotransferase (ALT/SGPT) 137U/L (0-32) Alkaline Phosphatase 166U/L (25-165) Total Protein 4.8g/dL (6.4-8.4) Albumin 3.2g/dL (3.4-5.0) Procalcitonin 0.19ng/mL (0.00-0.08) Thyroid Stimulating Hormone (TSH) 2.730uIU/mL (0.450-4.500) Free Thyroxine 1.17ng/dL (0.82-1.77) Result Diagram: 01/18/1762901/18/17 0630 General Appearance: Alert, Oriented X3, Cooperative, No Acute Distress Extremities: Distal Pulses Palpable, No Compartment Syndrom Noted, Thigh & Calf Soft/Nontender, Edema Localized (at right hip, as expected) Postop Sensory Motor: Distal Motor Intact, NVI Distally SURGICAL WOUND : Wound Location/Description Lateral right hip: [place] Dressings are clean, dry and intact Activity: Activity per PT, Ambulate with PT Catheters: None Assessment & Plan Impression POD #3 Right hip IM nail Problems: Plan Weightbearing: Weightbearing as tolerated with walker DVT prophylaxis: Lovenox 40 mg subcutaneous 3 weeks post op followed by aspirin 325 mg twice a day 3 weeks Physical therapy for transfers, progressive ambulation, therapeutic exercise Wound care: Reinforce or change as needed. Ortho will sign off now now. Please call if any right hip issues. Orthopedic discharge instructions written Discharge plan: Discharge to long-term facility 1-2 days when medically stable Follow-up plan: In 2 weeks at [facility] with SARIKA for wound check and at [address] Wiseman with x-rays Pain Management: [place], vistaril VTE Prophylaxis: Sub-Q Enoxaparin, SCDs Resuscitation Status: CPR: Attempt Resuscitation Isabel Guadarrama PA-C Jan 18, 2017 09:21
--- NOTE | 2017-01-18 09:54 | PCM.DIORTH ---
Ortho Discharge Instruction Date of Service: Jan 18, 2017 Dates of Hospitalization Date of Hospital Admission Jan 14, 2017 at 18:43 Providers Admitting Physician: Ailyn Park MD Primary Care Physician: Christiano Briggs MD Attending Physician: Ailyn Park MD Activity Discharge Activity-General: Balance rest and activity, Elevate & ice extremity Right Lower Extremity: Weight Bearing as tolerated Discharge Assist Device: Front Wheeled Walker Dressing and Incisional Care Discharge Dressing Care: Keep dressing clean, dry & intact, Change soiled dressing Discharge Hygiene: May shower (see instructions below) Additional Instructions Discharge Instructions Weightbearing: Weightbearing as tolerated with walker DVT prophylaxis: Lovenox 40 mg subcutaneous 3 weeks post op followed by aspirin 325 mg twice a day 3 weeks Physical therapy for transfers, progressive ambulation, therapeutic exercise Wound care: Reinforce or change as needed. The patient may shower if the wound has no drainage present x 24 hours. Wound may be uncovered to shower. Let soap and water run over the wound, pat dry and apply a new dressing. Follow Up Plan Follow Up Plan Follow-up plan: 2 weeks post op at [facility] with SARIKA for wound check and at [address] Wiseman with x-rays Call your provider for: Fever, Chills, Drainage at incision, Wound redness Isabel Guadarrama PA-C Jan 18, 2017 09:54
[2017-01-18] MEDS: THYROID PORK 15 MG PO SCH (09:58)
[2017-01-18 10:00] VITALS: BP 118/72; PULSE 85; RESP 16; O2SAT 96
--- NOTE | 2017-01-18 13:43 | DRSVH ---
PROCEDURE: X-RAY CHEST ONE VIEW, PORTABLE ([id number]) INDICATIONS: chest pain TECHNIQUE: One view of the chest was acquired. COMPARISON: [facility], CR, XR CHEST 1VW (PORTABLE), 01/14/2017, 17:23. FINDINGS: Surgical changes and devices: Multiple bilateral surgical clips as well as surgical clips involving t he superior mediastinum. Lungs and pleura: No pleural effusions or pneumothorax. Medial bibasilar airspace opacities present .. Mediastinum: Mediastinal contours appear normal. Heart size is normal. Bones and chest wall: No suspicious bony lesions. Overlying soft tissues appear unremarkable. IMPRESSION: Bibasilar atelectasis versus aspiration or pneumonia. Correlate clinically. Dictated by: Zurdo Salazar RRA Interpreted: Tawny Clark MD on 01/18/2017 at 13:43 Transcribed by: BUSTER on 01/18/2017 at 13:43 Approved by: Tawny Clark M.D. on 01/18/2017 at 14:18
--- NOTE | 2017-01-18 14:56 | DRSVH ---
PROCEDURE: CT ANGIO CHEST PULMONARY EMBOLISM ([id number]) INDICATIONS: ELEVATED D DIMER TECHNIQUE: After the administration of intravenous contrast, 2 mm thick sections acquired from the pulmonary api torres to the posterior costophrenic angles. 3-dimensional maximum intensity projection (MIP) coronal a nd sagittal reformats were then acquired through the thorax. For radiation dose reduction, the follo wing was used: automated exposure control, adjustment of mA and/or kV according to patient size. COMPARISON: None. FINDINGS: Image quality: Excellent. Pulmonary arteries: Pulmonary arteries are normal in size, and demonstrate no intraluminal filling d efects to suggest central pulmonary embolism. Lungs and pleura: Atelectasis noted in the dependent portions of the lungs. No pleural effusions or p neumothorax. Central and peripheral airways are patent. Mediastinum: Heart size is enlarged, without pericardial effusion. Atherosclerotic calcifications no ivan in the aorta and the great vessels. No mediastinal or hilar adenopathy. Thoracic aorta is margaret l in caliber and enhancement. Esophagus is normal in caliber, without hiatal hernia. Bones and chest wall: Pectus excavatum deformity noted. No suspicious bony lesions. Ribs and thorac ic spine appear intact throughout. Thyroid gland is within normal limits. No axillary or supraclavi cular adenopathy. Abdomen: Visualized upper abdominal solid organs appear normal in the early arterial phase of enhanc ement. IMPRESSION: 1. No pulmonary embolus. 2. Atherosclerosis. 3. Mild cardiomegaly. Dictated by: Juliette Benton MD, PhD on 01/18/2017 at 14:51 Approved by: Juliette Benton MD, PhD on 01/18/2017 at 14:55
--- NOTE | 2017-01-18 15:14 | DRSVH ---
PROCEDURE: US ABDOMEN INDICATIONS: elevated liver enzymes TECHNIQUE: Real-time scanning was performed of the abdominal and retroperitoneal organs, with image documentatio n. COMPARISON: [facility], CT, ABDOMEN/PELVIS WITH CONTRAST, 08/23/2013, 8:36. FINDINGS: Liver length: 16.46 cm Gallbladder Wall Thickness: 1.30 mm CHD: - CBD: 3.10 mm Spleen length: 9.39 cm Right kidney length: 10.34 cm Left kidney length: 9.10 cm Aorta(Proximal): 1.96 cm Aorta(Mid): 2.30 cm Aorta(Distal): 1.73 cm RCIA: - LCIA: - Liver: Liver is normal in size and course echotexture. Gallbladder: Patient is nonfasting and the gallbladder is contracted. No obvious stone seen. Biliary ducts: Intrahepatic bile ducts are non-dilated. Extrahepatic bile duct caliber is normal. Normal is 6-7 mm or less in diameter, or 10 mm or less post-cholecystectomy. Pancreas: Visualized portions of the pancreas are sonographically normal. Spleen: Spleen is normal in size and homogeneous in echotexture. Kidneys: Kidneys are normal in size and echotexture. No hydronephrosis. A 10 mm nonobstructing rig ht renal stone is seen in mid right kidney. Aorta: Visualized aorta is normal in caliber at less than 3 cm. Iliacs: Proximal common iliac arteries are obscured by overlying bowel gas. IVC: Intrahepatic inferior vena cava is patent. Miscellaneous: No free abdominal fluid. IMPRESSION: 1. Coursed liver echotexture consistent with hepatocellular disease such as hepatitis. Recommend clin ical correlation. No intrahepatic biliary dilation. 2. Normal gallbladder. No gallstones or common bile duct obstruction. 3. A 10 mm nonobstructive right renal stone. Dictated by: Zurdo Salazar [facility] Interpreted: Tawny Clark MD on 01/18/2017 at 15:12 Transcribed by: BUSTER on 01/18/2017 at 15:14 Approved by: Tawny Clark M.D. on 01/18/2017 at 22:14
--- NOTE | 2017-01-18 15:21 | PCM.PNMED ---
Subjective Date of Service Jan 18, 2017 Subjective Patient complained of substernal dull aching pain over night. Pain lasted few minutes. No diaphoresis. No dyspnea. Telemetry uneventful. Troponin negative. D-dimer is elevated, liver function test elevated. CTA done negative for PE.RUQ US pending. Exam Vital Signs Vital Sign - Last Date Time Temp Pulse Resp B/P Pulse Ox O2 Delivery O2 Flow Rate FiO2 01/18/17 11:22 Room Air 01/18/17 06:18 37.2 86 16 118/65 94 01/15/17 11:05 4 Intake and Output 01/17/17 01/17/17 01/18/17 Cumulative From/Thru 15:00 23:00 07:00 01/14/17 16:12 - 01/18/17 06:20 Intake Total 600 ml 836 ml 6627 ml Output Total 300 ml 350 ml 3650 ml Balance 300 ml 486 ml 2977 ml Intake Oral 600 ml 836 ml 4686 ml IV Total 0 ml 1941 ml Output Urine Total 300 ml 350 ml 3600 ml Estimated Blood Loss 50 ml # Voids 1 2 3 # Bowel Movements 3 3 Exam General: Alert and oriented, no acute distress HEENT: unremarkable except the chronic droop of right side of mouth Neck: no JVD, carotids 2+ Heart: Regular Lungs: Clear Abdomen: Soft, non-tender, normal BT, RUQ soft Extremities: No pedal edema. Right hip swelling and tenderness. Cleanly dressed surgical site on right hip. Neuro: no apparent deficit IVs and Medications Medications Reviewed: Medications were reviewed in detail Lab and Diagnostics Result Diagram: 01/18/1762901/18/17 0630 X-Rays, CTs and MRIs PROCEDURE: X-RAY PELVIS W/LAT HIP (RT) ([id number]) INDICATIONS: fall R hip pain TECHNIQUE: AP pelvis with lateral view(s) of the right hip(s). COMPARISON: None. FINDINGS: Bones: Comminuted, intertrochanteric right hip fracture is noted. Right hip fracture is in varus angulation. Soft tissues: The visualized bowel gas pattern is normal. Calcifications project over the midline of the pelvis likely related to uterine fibroids. IMPRESSION: Intertrochanteric right hip fracture. Dictated by: Juliette Benton MD, PhD on 01/14/2017 at 18:11 PROCEDURE: CT ANGIO CHEST PULMONARY EMBOLISM ([id number]) INDICATIONS: ELEVATED D DIMER TECHNIQUE: After the administration of intravenous contrast, 2 mm thick sections acquired from the pulmonary apices to the posterior costophrenic angles. 3-dimensional maximum intensity projection (MIP) coronal and sagittal reformats were then acquired through the thorax. For radiation dose reduction, the following was used: automated exposure control, adjustment of mA and/or kV according to patient size. COMPARISON: None. FINDINGS: Image quality: Excellent. Pulmonary arteries: Pulmonary arteries are normal in size, and demonstrate no intraluminal filling defects to suggest central pulmonary embolism. Lungs and pleura: Atelectasis noted in the dependent portions of the lungs. No pleural effusions or pneumothorax. Central and peripheral airways are patent. Mediastinum: Heart size is enlarged, without pericardial effusion. Atherosclerotic calcifications noted in the aorta and the great vessels. No mediastinal or hilar adenopathy. Thoracic aorta is normal in caliber and enhancement. Esophagus is normal in caliber, without hiatal hernia. Bones and chest wall: Pectus excavatum deformity noted. No suspicious bony lesions. Ribs and thoracic spine appear intact throughout. Thyroid gland is within normal limits. No axillary or supraclavicular adenopathy. Abdomen: Visualized upper abdominal solid organs appear normal in the early arterial phase of enhancement. IMPRESSION: 1. No pulmonary embolus. 2. Atherosclerosis. 3. Mild cardiomegaly. Dictated by: Juliette Benton MD, PhD on 01/18/2017 at 14:51 Assessment & Plan # Right hip fracture due to mechanical fall,acute -s/p Right hip short Affixus nail on 01/15/17 -DVT prophylaxis Lovenox 40 mg daily -Pain control: [place] and dilaudid IV #Episode of chest pain, resolved -Likely musculoskeletal -Troponin negative, d-dimer elevated, CTA negative for PE -Telemetry -Consider echocardiogram if she has any further episode #Transaminitis,acute,not poa -AST and ALT elevated 3-4 times, unclear etiology -RUQ US pending -Recheck LFT tomorrow -Switched [place] to oxycodone # Hyponatremia, acute on chronic -Na 125 01/16,improved to 129 -Probably due to dehydration -Continue NS at 75ml/h. Encourage by mouth rehydration -Continue to monitor. #Acute blood loss anemia -Continue to monitor # Transient Hypertension, probably chronic, new diagnosis -Initially Started amlodipine on current admission due to high SBP persisting in 180s despite pain control. -Discontinue amlodipine #Hypothyroidism, chronic -Continue home armor thyroid # hx breast cancer -continue home anastrazole 1mg daily Disposition: Discharge to snf facility tomorrow if liver function test shows some improvement and RUQ US negative. Spoke with patient's son and daughter. They are placing their dad today or tomorrow to the same snf facility patient is going. they would be happy if patient could be discharged tomorrow if medically stable VTE Prophylaxis: Sub-Q Enoxaparin, SCDs VTE Mechanical Devices: Intermittant Pneumatic CD Resuscitation Status: CPR: Attempt Resuscitation Kameron Cullen MD Jan 18, 2017 15:21
--- NOTE | 2017-01-18 16:13 | NUR ---
Social Work- Readiness for Discharge Data: EMR reviewed. Pt is on day 34 of hospitalization for right hip fracture per H&P. Pt is not medically stable for discharge, anticipate 1-2 more days. PT recommends SNF. [facility] [phone] who is agreeable to accepting pt at discharge with Roseline Carlisle MD to follow. SW spoke with both daughter Kathy [phone] and son Truong [phone] via phone today to further discuss. SW explained the recommendation of cabualnce and that pt would not likely be safe to travel POV. Family agreeable and aware they will need to pay up front for this. SW requested UR specialist call both [facility] and [facility] and get private quotes. [facility] $170 and [facility] $175.00. SW called daughter back and provided her with this information in a message. Family aware that pt may discharge tomorrow and it would likely be early afternoon. Paperwork and PASRR in the chart. SW will continue to follow. Assessment: Pt who would benefit from SNF. Plan:Pt to discharge to [facility] when medically stable via private pay cabulance. Paperwork and PASRR in the chart. SW will continue to follow. ZIYAD Galindo
--- NOTE | 2017-01-18 18:38 | NUR ---
Activity Pt encouraged to get OOB more this shift. Pt up to BSC and BR w/ 1p assist Increases pain, but pt able to work through it and is aware of
[2017-01-18 19:19] VITALS: BP 129/62; PULSE 79; RESP 18; O2SAT 96
--- NOTE | 2017-01-19 00:25 | NUR ---
ACTIVITY/PAIN: Pt. resting in bed most of the evening. Has been up to the BSC with one person assist, having BMs now. No longer constipated. Did not request pain medication but when asked about her pain during assessment she states: "If I don't move my pain is about 4/10, but if I move my pain is about 8 or 9/10, given 5 mg of Roxicodone and 25 mg of Vistaril. A & O, vss. On going care.
[2017-01-19] MEDS: Sodium Chloride LOK Flush 10 mL Syringe IV SCH ×3 (00:30→16:30)
[2017-01-19 04:16] VITALS: BP 162/71; PULSE 77; RESP 16; O2SAT 95
[2017-01-19] MEDS: hydrOXYzine Pamoate 25 mg Capsule PO PRN ×4 (05:13→21:16)
[2017-01-19 08:57] LABS: BASOPHILS % (AUTO) 0.5 % (0-3); EOSINOPHILS % (AUTO) 4.7 % (0-5); MONOCYTES % (AUTO) 11.2 % (4-12); NEUTROPHILS % (AUTO) 66.6 % (40-74); Platelet Count 209 bil/L (150-400)
[2017-01-19] MEDS: THYROID PORK 15 MG PO SCH (09:32)
[2017-01-19] MEDS: 0.9% Sodium Chloride 1,000 ML IV SCH (09:34)
--- NOTE | 2017-01-19 10:42 | NUR ---
Pain Pt accidentally given oxycodone 10mg instead of 5mg. MD aware. 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 Addendum: 01/19/17 at 1434 by CASSANDRA DUBOIS RN Pt VSS, awakens easily to voice and O2 sats having ranged from 95-98% on RA.
[2017-01-19 14:03] VITALS: BP 154/55; PULSE 154; RESP 16; O2SAT 100
[2017-01-19 14:31] VITALS: PULSE 84
--- NOTE | 2017-01-19 15:49 | PCM.PNMED ---
Subjective Date of Service Jan 19, 2017 Subjective Patient seen this morning, no acute complaints. If she does not move her pain is well controlled, denies shortness of breath fever or chest pain. LFTs remain elevated, mildly increased we will send hepatitis panel today. Exam Vital Signs Vital Sign - Last Date Time Temp Pulse Resp B/P Pulse Ox O2 Delivery O2 Flow Rate FiO2 01/19/17 14:31 84 01/19/17 14:05 Room Air 01/19/17 14:03 36.8 16 154/55 100 01/15/17 11:05 4 Intake and Output 01/18/17 01/18/17 01/19/17 Cumulative From/Thru 15:00 23:00 07:00 01/14/17 16:12 - 01/19/17 05:23 Intake Total 980 ml 1572 ml 9179 ml Output Total 150 ml 450 ml 4250 ml Balance 830 ml 1122 ml 4929 ml Intake Oral 440 ml 513 ml 5639 ml IV Total 540 ml 1059 ml 3540 ml Output Urine Total 150 ml 450 ml 4200 ml Estimated Blood Loss 50 ml # Voids 2 5 # Bowel Movements 2 2 7 Exam General: Alert and oriented, no acute distress HEENT: unremarkable except the chronic droop of right side of mouth Neck: no JVD, carotids 2+ Heart: Regular Lungs: Clear Abdomen: Soft, non-tender, normal BT, RUQ soft Extremities: No pedal edema. Right hip swelling and tenderness. Cleanly dressed surgical site on right hip. Neuro: no apparent deficit IVs and Medications Medications Reviewed: Medications were reviewed in detail Lab and Diagnostics Result Diagram: 01/19/17 0845 01/19/17 0845 X-Rays, CTs and MRIs PROCEDURE: X-RAY PELVIS W/LAT HIP (RT) ([id number]) INDICATIONS: fall R hip pain TECHNIQUE: AP pelvis with lateral view(s) of the right hip(s). COMPARISON: None. FINDINGS: Bones: Comminuted, intertrochanteric right hip fracture is noted. Right hip fracture is in varus angulation. Soft tissues: The visualized bowel gas pattern is normal. Calcifications project over the midline of the pelvis likely related to uterine fibroids. IMPRESSION: Intertrochanteric right hip fracture. Dictated by: Juliette Benton MD, PhD on 01/14/2017 at 18:11 PROCEDURE: CT ANGIO CHEST PULMONARY EMBOLISM ([id number]) INDICATIONS: ELEVATED D DIMER TECHNIQUE: After the administration of intravenous contrast, 2 mm thick sections acquired from the pulmonary apices to the posterior costophrenic angles. 3-dimensional maximum intensity projection (MIP) coronal and sagittal reformats were then acquired through the thorax. For radiation dose reduction, the following was used: automated exposure control, adjustment of mA and/or kV according to patient size. COMPARISON: None. FINDINGS: Image quality: Excellent. Pulmonary arteries: Pulmonary arteries are normal in size, and demonstrate no intraluminal filling defects to suggest central pulmonary embolism. Lungs and pleura: Atelectasis noted in the dependent portions of the lungs. No pleural effusions or pneumothorax. Central and peripheral airways are patent. Mediastinum: Heart size is enlarged, without pericardial effusion. Atherosclerotic calcifications noted in the aorta and the great vessels. No mediastinal or hilar adenopathy. Thoracic aorta is normal in caliber and enhancement. Esophagus is normal in caliber, without hiatal hernia. Bones and chest wall: Pectus excavatum deformity noted. No suspicious bony lesions. Ribs and thoracic spine appear intact throughout. Thyroid gland is within normal limits. No axillary or supraclavicular adenopathy. Abdomen: Visualized upper abdominal solid organs appear normal in the early arterial phase of enhancement. IMPRESSION: 1. No pulmonary embolus. 2. Atherosclerosis. 3. Mild cardiomegaly. Dictated by: Juliette Benton MD, PhD on 01/18/2017 at 14:51 Assessment & Plan # Right hip fracture due to mechanical fall,acute -s/p Right hip short Affixus nail on 01/15/17 -DVT prophylaxis Lovenox 40 mg daily -Pain control: Oxycodone 5 mg every 4 when necessary and dilaudid IV when necessary #Episode of chest pain, resolved -Likely musculoskeletal -Troponin negative, d-dimer elevated, CTA negative for PE -Telemetry -Consider echocardiogram if she has any further episode #Transaminitis,acute,not poa -Ultrasound abdomen showing coarse liver texture consistent with hepatocellular disease such as hepatitis, hepatitis panel pending -Recheck LFTs tomorrow -AST and ALT elevated 3-4 times, unclear etiology -RUQ US reviewed above -Switched [employer] to oxycodone # Hyponatremia, acute on chronic -Na 125 01/16,improved to 130 -Probably due to dehydration -Continue NS at 75ml/h. Encourage by mouth rehydration -Continue to monitor. #Acute blood loss anemia -Continue to monitor # Transient Hypertension, probably chronic, new diagnosis -Initially Started amlodipine on current admission due to high SBP persisting in 180s despite pain control. -Discontinue amlodipine #Hypothyroidism, chronic -Continue home armor thyroid # hx breast cancer -continue home anastrazole 1mg daily Disposition: Discharge to long-term facility tomorrow if liver function test shows some improvement and RUQ US negative. Spoke with patient's son and daughter. They are placing their dad today or tomorrow to the same long-term facility patient is going. they would be happy if patient could be discharged tomorrow if medically stable Pain Evaluation: Adequate Pain Control GI Prophylaxis: Not indicated VTE Prophylaxis: Sub-Q Enoxaparin, SCDs VTE Mechanical Devices: Intermittant Pneumatic CD Resuscitation Status: CPR: Attempt Resuscitation Time spent 35 minutes both evaluation management Attending Statement Disposition: Likely discharge tomorrow after recheck of LFTs and follow-up of hepatitis panel with clinical improvement/stability Nima Hernandez DO Jan 19, 2017 15:49
[2017-01-19 19:27] VITALS: BP 136/61; PULSE 95; RESP 18; O2SAT 98
--- NOTE | 2017-01-19 19:27 | NUR ---
HR HR charged at 154, but was mischarted by CUE WORKER, requested to change in computer, but not done yet. Rechecked pt's HR at time seen in computer and it was 84.
[2017-01-20] MEDS: Sodium Chloride LOK Flush 10 mL Syringe IV SCH ×2 (00:30→08:30)
[2017-01-20] MEDS: 0.9% Sodium Chloride 1,000 ML IV SCH ×2 (01:41→08:20)
[2017-01-20 03:08] LABS: Hepatitis A Antibody IgM Negative (Negative); Hepatitis B Core Antibody IgM Negative (Negative)
--- NOTE | 2017-01-20 04:33 | NUR ---
Mobility / pain Mobilizing slowly to BR with FWW, continuing to encourage. Continuing to encourage bed mobility as well. Pain well controlled with 5 mg oxycodone prn with Vistaril adjunct.
[2017-01-20 04:37] VITALS: BP 171/88; PULSE 89; RESP 16; O2SAT 95
[2017-01-20] MEDS: hydrOXYzine Pamoate 25 mg Capsule PO PRN ×3 (04:49→13:37)
[2017-01-20 05:12] LABS: BASOPHILS % (AUTO) 0.6 % (0-3); MONOCYTES % (AUTO) 12.2 % (4-12); Mean Corpuscular Hemoglobin 31.5 pg (27.0-35.0); Mean Corpuscular Volume 94.5 fL (81-100); Platelet Count 235 bil/L (150-400)
[2017-01-20] MEDS: THYROID PORK 15 MG PO SCH (09:08)
[2017-01-20 09:46] VITALS: BP 135/64; PULSE 68; RESP 18; O2SAT 94
--- NOTE | 2017-01-20 10:46 | PCM.DIMED ---
Discharge Instructions Date of Service Jan 20, 2017 Dates of Hospitalization Jan 14, 2017 at 18:43 Discharge Diagnosis Discharge Diagnosis Right hip fracture due to mechanical fall, status post right hip intramedullary nail on January 15 Noncardiac chest pain, likely muscular skeletal Elevated LFTs, likely medication induced from possible intraoperative anesthetic or cefazolin, downtrending at discharge Hyponatremia, chronic Acute blood loss anemia Transient hypertension, likely secondary to pain Hypothyroidism Medication Instructions Oxycodone for pain every 4 when necessary, ensure patient is taking a bowel regimen as well to prevent constipation Test Results PROCEDURE: CT ANGIO CHEST PULMONARY EMBOLISM ([id number]) INDICATIONS: ELEVATED D DIMER TECHNIQUE: After the administration of intravenous contrast, 2 mm thick sections acquired from the pulmonary apices to the posterior costophrenic angles. 3-dimensional maximum intensity projection (MIP) coronal and sagittal reformats were then acquired through the thorax. For radiation dose reduction, the following was used: automated exposure control, adjustment of mA and/or kV according to patient size. COMPARISON: None. FINDINGS: Image quality: Excellent. Pulmonary arteries: Pulmonary arteries are normal in size, and demonstrate no intraluminal filling defects to suggest central pulmonary embolism. Lungs and pleura: Atelectasis noted in the dependent portions of the lungs. No pleural effusions or pneumothorax. Central and peripheral airways are patent. Mediastinum: Heart size is enlarged, without pericardial effusion. Atherosclerotic calcifications noted in the aorta and the great vessels. No mediastinal or hilar adenopathy. Thoracic aorta is normal in caliber and enhancement. Esophagus is normal in caliber, without hiatal hernia. Bones and chest wall: Pectus excavatum deformity noted. No suspicious bony lesions. Ribs and thoracic spine appear intact throughout. Thyroid gland is within normal limits. No axillary or supraclavicular adenopathy. Abdomen: Visualized upper abdominal solid organs appear normal in the early arterial phase of enhancement. IMPRESSION: 1. No pulmonary embolus. 2. Atherosclerosis. 3. Mild cardiomegaly. Dictated by: Juliette Benton MD, PhD on 01/18/2017 at 14:51 FINDINGS: Bones: Comminuted, intertrochanteric right hip fracture is noted. Right hip fracture is in varus angulation. Soft tissues: The visualized bowel gas pattern is normal. Calcifications project over the midline of the pelvis likely related to uterine fibroids. IMPRESSION: Intertrochanteric right hip fracture. Dictated by: Juliette Benton MD, PhD on 01/14/2017 at 18:11 Diet Low fat, Low Sodium Activity Other (PT/OT) Call your provider Fever or Chills, Shortness of breath, Chest pain Patient Instructions You are being discharged after receiving a procedure for your right hip fracture that includes securing your hip with an orthopedic nail. Please continue to use your pain medication to facilitate optimize rehabilitation. This pain medication can cause constipation, please be sure to take stool softeners daily when using this pain medication. Follow-up plan Please follow up in 2 weeks at [facility] ([facility] with PA for wound check and at [address] Wiseman with x-rays. Please call to make an appointment for these future dates Follow-up Provider: Christiano Briggs MD Follow-up with PCP in: 1 week (after discharge from snf) Nima Hernandez DO Jan 20, 2017 10:46
[2017-01-20] MEDS ORDERED: OXYC5TAB72 PO (10:49)
[2017-01-20] MEDS ORDERED: POLY17PO6 PO (10:49)
[2017-01-20] MEDS ORDERED: SENN-133 PO (10:49)
[2017-01-20] MEDS ORDERED: ENOX40DI8 SUBQ (10:56)
--- NOTE | 2017-01-20 10:56 | PCM.DC.MED ---
Discharge Summary Date of Service Jan 20, 2017 Dates of Hospitalization Date of Hospital Admission Jan 14, 2017 at 18:43 Date of Discharge: Jan 20, 2017 Providers: Admitting Physician: Ailyn Park MD Primary Care Physician: Christiano Briggs MD Attending Physician: Ailyn Park MD Diagnosis at Time of Discharge Diagnosis at Time of Discharge Right hip fracture due to mechanical fall, status post right hip intramedullary nail on January 15 Noncardiac chest pain, likely muscular skeletal Elevated LFTs, likely medication induced from possible intraoperative anesthetic or cefazolin, downtrending at discharge Hyponatremia, chronic Acute blood loss anemia Transient hypertension, likely secondary to pain Hypothyroidism Consultations Dr. Wiseman orthopedic surgery Procedures XRay, CTs & MRIs PROCEDURE: X-RAY PELVIS W/LAT HIP (RT) ([id number]) INDICATIONS: fall R hip pain TECHNIQUE: AP pelvis with lateral view(s) of the right hip(s). COMPARISON: None. FINDINGS: Bones: Comminuted, intertrochanteric right hip fracture is noted. Right hip fracture is in varus angulation. Soft tissues: The visualized bowel gas pattern is normal. Calcifications project over the midline of the pelvis likely related to uterine fibroids. IMPRESSION: Intertrochanteric right hip fracture. Dictated by: Juliette Benton MD, PhD on 01/14/2017 at 18:11 PROCEDURE: CT ANGIO CHEST PULMONARY EMBOLISM ([id number]) INDICATIONS: ELEVATED D DIMER TECHNIQUE: After the administration of intravenous contrast, 2 mm thick sections acquired from the pulmonary apices to the posterior costophrenic angles. 3-dimensional maximum intensity projection (MIP) coronal and sagittal reformats were then acquired through the thorax. For radiation dose reduction, the following was used: automated exposure control, adjustment of mA and/or kV according to patient size. COMPARISON: None. FINDINGS: Image quality: Excellent. Pulmonary arteries: Pulmonary arteries are normal in size, and demonstrate no intraluminal filling defects to suggest central pulmonary embolism. Lungs and pleura: Atelectasis noted in the dependent portions of the lungs. No pleural effusions or pneumothorax. Central and peripheral airways are patent. Mediastinum: Heart size is enlarged, without pericardial effusion. Atherosclerotic calcifications noted in the aorta and the great vessels. No mediastinal or hilar adenopathy. Thoracic aorta is normal in caliber and enhancement. Esophagus is normal in caliber, without hiatal hernia. Bones and chest wall: Pectus excavatum deformity noted. No suspicious bony lesions. Ribs and thoracic spine appear intact throughout. Thyroid gland is within normal limits. No axillary or supraclavicular adenopathy. Abdomen: Visualized upper abdominal solid organs appear normal in the early arterial phase of enhancement. IMPRESSION: 1. No pulmonary embolus. 2. Atherosclerosis. 3. Mild cardiomegaly. Dictated by: Juliette Benton MD, PhD on 01/18/2017 at 14:51 ECG 12 Lead Sinus rhythm, no acute ischemic changes Brief History History of present illness as per admitting physician: She was helping her today who lost his balance and fell into her and while she was trying to prevent him from falling she fell and landed on the cement on her right side and noted right hip pain and was unable to get up. Denies LOC. No preceeding chest pain, SOB or palpitations. Hospital Course # Right hip fracture due to mechanical fall,acute -s/p Right hip short Affixus nail on 01/15/17 -DVT prophylaxis Lovenox 40 mg daily - Ortho- plan for postoperativeDVT prophylaxis: Lovenox 40 mg subcutaneous 3 weeks post op (sx 01/15--> lovenox until 02/05) followed by aspirin 325 mg twice a day 3 weeks -Pain control: Oxycodone 5 mg every 4 when necessary at discharge, along with bowel regimen of MiraLAX and scheduled senna #Transient Episode of chest pain, resolved at the time of discharge -Likely musculoskeletal -Troponin negative, d-dimer elevated, CTA negative for PE -Telemetry #Transaminitis,acute,not poa -Ultrasound abdomen showing coarse liver texture consistent with hepatocellular disease such as hepatitis, viral hepatitis panel was negative -The time of discharge LFTs began down trending, alkaline phosphatase elevated which may be related to postoperative orthopedic surgery/fracture. -AST and ALT elevated which may have been related to intraoperative anesthetic use with possible dehydration and/or exacerbated by Hob[place]/acetaminophen use postoperatively -RUQ US reviewed above, without evidence of obvious etiology for LFT elevation -Switched Hobgood to oxycodone, which patient will be discharged on # Hyponatremia, acute on chronic -Stable -Probably due to dehydration -Continue to monitor. #Acute blood loss anemia -Continue to monitor # Transient Hypertension, probably chronic, new diagnosis -Initially Started amlodipine on current admission - discontinue amlodipine to evaluate elevated LFTs which may also be secondary to pain but if blood pressure continues to remain elevated may consider low dose losartan if continues in outpatient/snf setting #Hypothyroidism, chronic -Continue home armor thyroid # hx breast cancer -continue home anastrazole 1mg daily Disposition: Discharge to shelter facility today Family updated, daughter was contacted, left message Exam Vital Signs (Last) Date Time Temp Pulse Resp B/P Pulse Ox O2 Delivery O2 Flow Rate FiO2 01/20/17 09:46 36.9 68 18 135/64 94 Room Air 01/15/17 11:05 4 Exam General: Alert and oriented, no acute distress HEENT: unremarkable except the chronic droop of right side of mouth Neck: no JVD, carotids 2+ Heart: Regular Lungs: Clear Abdomen: Soft, non-tender, normal BT, RUQ soft Extremities: No pedal edema. Right hip swelling and tenderness. Cleanly dressed surgical site on right hip. Neuro: no apparent deficit Test 01/14/17 16:45 01/14/17 17:01 01/18/17 06:30 01/18/17 09:54 Urine Color Yellow (YELLOW) Urine Appearance Clear (CLEAR,HAZY) Urine pH 7.0 (5.0-8.0) Urine Specific Ramah 1.015 (1.003-1.035) Urine Protein Negativemg/dL (NEG,TRACE) Urine Glucose (UA) Negativemg/dL (NEGATIVE) Urine Ketones Negativemg/dL (NEGATIVE) Urine Occult Blood Negative (NEGATIVE) Urine Nitrite Negative (NEGATIVE) Urine Bilirubin Negative (NEGATIVE) Urine Urobilinogen Normalmg/dL (NORMAL) Urine Leukocyte Esterase Negative (NEGATIVE) Urine RBC 0-2/hpf (0-2) Urine WBC 0-5/hpf (0-5) Urine Epithelial Cells Occasional/hpf (NONE-MOD) Urine Crystals None seen (NONE SEEN) Urine Bacteria None/hpf (NONE-FEW) Urine Hyaline Casts None/lpf (NONE) Urine Granular Casts None seen (NONE SEEN) Urine Waxy Casts None seen (NONE SEEN) Urine Red Blood Cell Casts None seen (NONE SEEN) Urine White Blood Cell Casts None seen (NONE SEEN) Urine Mucus None seen (None Seen) Urine Trichomonas None seen (NONE SEEN) Urine Yeast None (NONE SEEN) Urinalysis Comment None Urine Culture Reflexed Not indicated Hold Urine Received (Received) Magnesium Level 2.1mg/dL (1.6-2.6) Procalcitonin 0.19ng/mL (0.00-0.08) Thyroid Stimulating Hormone (TSH) 2.730uIU/mL (0.450-4.500) Free Thyroxine 1.17ng/dL (0.82-1.77) D-Dimer 3.8mg/L (<0.50) Troponin T < 0.010ug/L (0.0-0.011) Test 01/19/17 08:45 01/20/17 05:00 01/20/17 09:35 Hepatitis A IgM Antibody Negative (Negative) Hepatitis B Surface Antigen Negative (Negative) Hepatitis B Core IgM Antibody Negative (Negative) Hepatitis C Antibody <0.1s/co ratio (0.0-0.9) Hepatitis C Comment Comment (.) White Blood Count 6.3th/mm3 (3.8-10.1) Red Blood Count 3.08mil/mm3 (3.90-5.20) Hemoglobin 9.7g/dL (12.0-15.6) Hematocrit 29.1% (35.0-46.0) Mean Corpuscular Volume 94.5fL (81-100) Mean Corpuscular Hemoglobin 31.5pg (27.0-35.0) Mean Corpuscular Hemoglobin Concent 33.3% (32.0-37.0) Red Cell Distribution Width 14.2% (12.3-15.4) Platelet Count 235bil/L (150-400) Neutrophils (%) (Auto) 59.0% (40-74) Lymphocytes (%) (Auto) 23.2% (14-46) Monocytes (%) (Auto) 12.2% (4-12) Eosinophils (%) (Auto) 4.0% (0-5) Basophils (%) (Auto) 0.6% (0-3) Sodium Level 129mEq/L (134-144) Potassium Level 5.1mEq/L (3.5-5.2) Chloride Level 95mEq/L (97-108) Carbon Dioxide Level 23mmol/L (18-29) Blood Urea Nitrogen 18mg/dL (8-27) Creatinine 0.51mg/dL (0.57-1.00) Estimat Glomerular Filtration Rate 166mL/min (>59) Glucose Level 104mg/dL (60-99) Calcium Level 9.0mg/dL (8.5-10.1) Total Bilirubin 0.6mg/dL (0.0-1.2) Aspartate Amino Transf (AST/SGOT) 94U/L (0-50) Alanine Aminotransferase (ALT/SGPT) 128U/L (0-32) Alkaline Phosphatase 263U/L (25-165) Total Protein 5.7g/dL (6.4-8.4) Albumin 3.0g/dL (3.4-5.0) Discharge Medications Discharge Medications Anastrozole (Anastrozole) 1 Mg Tablet 1 MG PO DAILY (Reported) Sennosides (Senna) 8.6 Mg Tablet 17.2 MG PO DAILY Prescribed by: MATTHEW SCHAEFFER DO Thyroid,Pork ([place] Thyroid) 15 Mg Tablet 15 MG PO DAILY (Reported) As needed Polyethylene Glycol 3350 (Miralax) 17 Gm Powd.pack 17 GM PO DAILY PRN PRN For Constipation Prescribed by: MATTHEW SCHAEFFER DO oxyCODONE (oxyCODONE) 5 Mg Tablet 5 MG PO Q4H PRN PRN For Moderate Pain Prescribed by: MATTHEW SCHAEFFER DO Additional med instructions Oxycodone for pain every 4 when necessary, ensure patient is taking a bowel regimen as well to prevent constipation Followup Plan Follow-up plan Please follow up in 2 weeks at [facility] with PA for wound check and at [address] Wiseman with x-rays. Please call to make an appointment for these future dates Discharge Diet: Low fat, Low Sodium Discharge Activity: Other (PT/OT) Patient Instructions You are being discharged after receiving a procedure for your right hip fracture that includes securing your hip with an orthopedic nail. Please continue to use your pain medication to facilitate optimize rehabilitation. This pain medication can cause constipation, please be sure to take stool softeners daily when using this pain medication. To prevent any clots being formed, the orthopedic service would like you to continue with a blood thinning medication, Lovenox 40 mg subcutaneous 3 weeks followed by aspirin 325 mg twice a day 3 weeks. In 2 weeks at [facility] with PA for wound check and at [address] Wiseman with x-rays Follow-up Provider: Christiano Briggs MD Follow-up with PCP in: 1 week (after discharge from snf) Follow-up in: 2 weeks (follow-up at [facility] with the physician wet process assistant head miller) Mid-level Provider: Ochoa Wiseman DO Follow-up with Mid-level in: 6 weeks Time spent 60 minutes spent with evaluation and management including coordination of care greater than 50% time spent [id number] copies to: Christiano Briggs MD; Ochoa Wiseman David DO Jan 20, 2017 10:56
--- NOTE | 2017-01-20 14:33 | NUR ---
Social Work- Discharge Data: EMR reviewed. Pt is on day 6 of hospitalization for right hip fracture per H&P. Pt is medically stable for discharge. PT recommends SNF placement. DEDE spoke with frankie Jordan at [facility] in [place] [phone] who is agreeable to accepting pt today with Roseline Carlisle MD to follow. DEDE spoke with son Truong [phone] via phone today regarding private pay cabulance. DEDE scheduled cabulance with [facility] for 1430. UR Specialist created packet and DEDE faxed updated clinicals to [facility]. DEDE updated pt at bedside and informed son Truong of discharge (daughter Dave is in [place], Truong states he will update her). RN, UC, pt/family and [facility] all updated and agreeable to plan. Assessment: Pt who would benefit from SNF. Plan:Pt to discharge to [facility] [place] SNF via private pay cabulance 1430. RN, UC, pt/family and [facility] all updated and agreeable to plan. Lenora Moses, SENIOR NET ARCHITECT
--- NOTE | 2017-01-20 14:48 | NUR ---
Discharge Pt discharged at 1440 in cabulence to [facility] in [place]. [facility] has packet for facility. Pt has all belongings, purse, walker and roberson. Also has thyroid home medication that was put into purse. Pt having pain 6/10, but medications given 55 minutes prior to discharge. Ice pack applied in w/c for comfort. Pt A&O x 3, but seemed slightly more confused and couldn't remember that she had been given medication. FRANC CINTRON. Last BP was elevated, but pt having acute pain. Island dressing on hip C/D&I. IV removed intact. Called both her children to notify that she had been discharged and was in route to SNF.
== END 2017-01-20 14:35 | DRG 481 ==
LOC: SED 16:12 → OSC 18:43
PROVIDERS: ADMIT Internal Medicine; ATTEND Internal Medicine
PROC: 0QS636Z Reposition Right Upper Femur with Intramedullary Internal Fixation Device, Percutaneous Approach (ICD-10-PCS; principal; 2017-01-15 09:00)
DX: S72.141A Displaced intertrochanteric fracture of right femur, initial encounter for closed fracture (principal); E87.1 Hypo-osmolality and hyponatremia; D62 Acute posthemorrhagic anemia; W18.39XA Other fall on same level, initial encounter; Y93.89 Activity, other specified; Y92.481 Parking lot as the place of occurrence of the external cause; Z85.3 Personal history of malignant neoplasm of breast; E03.9 Hypothyroidism, unspecified; I10 Essential (primary) hypertension; E86.0 Dehydration; R07.89 Other chest pain; R74.0 Nonspecific elevation of levels of transaminase and lactic acid dehydrogenase [LDH]